=== PATIENT | female | born 1940 | race Two or more races ===

== ENCOUNTER 2018-09-25 17:27 | Inpatient (IN) | payer MEDICARE, OTHER ==
--- NOTE | 2018-09-25 17:54 | ED ---
Abdominal Pain HPI - General Chief Complaint: Abdominal Pain Stated Complaint: Gallbladder Time Seen by Provider: 09/25/18 17:30 Source: patient, EMS, RN notes reviewed Mode of arrival: EMS Limitations: no limitations - History of Present Illness Initial Comments: This is a 78-year-old [facility] with [facility] She was scheduled had a cholecystectomy done today was found have a markedly elevated white blood cell count. Is transferred here for higher level of care. She states her pain is not bad it did start last night and early this morning with associated nausea she currently denies any fevers chills nausea sweats or other symptoms at this time. View of old charting from the other facility shows a white blood cell count of 24.83 with 85 neutrophils and bilirubin elevated at 4.6 and troponin was elevated at 0.294. The patient is denying chest pain also the patient did have a CAT scan done and it was suggestive of acute cholecystitis with cholelithiasis. MD Complaint: abdominal pain - Related Data Home Medications Medication Instructions Recorded Confirmed Acetaminophen Tab [Tylenol Tab] 1,000 mg PO Q6H PRN 09/25/18 09/25/18 Fish Oil/Dha/Epa [Fish Oil 1,200 1 cap PO DAILY 09/25/18 09/25/18 mg Fish Oil] Vitamin B Complex 1 cap PO DAILY 09/25/18 09/25/18 Allergies Allergy/AdvReac Type Severity Reaction Status Date / Time No Known Allergies Allergy Unverified 09/25/18 17:39 Review of Systems ROS Statement: Those systems with pertinent positive or pertinent negative responses have been documented in the HPI. ROS Other: All systems not noted in ROS Statement are negative. Past Medical History Past Medical History: Cancer Additional Past Medical History / Comment(s): skin ca. History of Any Multi-Drug Resistant Organisms: None Reported Past Surgical History: No Surgical Hx Reported Past Psychological History: No Psychological Hx Reported Smoking Status: Current every day smoker Past Alcohol Use History: None Reported General Exam - General Exam Comments Initial Comments: This is a well-developed well-nourished awake alert oriented 3 female Limitations: no limitations General appearance: alert, in no apparent distress Head exam: Present: atraumatic, normocephalic, normal inspection Eye exam: Present: normal appearance, PERRL, EOMI. Absent: scleral icterus, conjunctival injection, periorbital swelling ENT exam: Present: normal exam, mucous membranes moist Neck exam: Present: normal inspection. Absent: tenderness, meningismus, lymphadenopathy Respiratory exam: Present: normal lung sounds bilaterally. Absent: respiratory distress, wheezes, rales, rhonchi, stridor Cardiovascular Exam: Present: regular rate, normal rhythm, normal heart sounds. Absent: systolic murmur, diastolic murmur, rubs, gallop, clicks GI/Abdominal exam: Present: soft, tenderness (Area mild tenderness palpation of the right upper quadrant), normal bowel sounds. Absent: distended, guarding, rebound, rigid Extremities exam: Present: normal inspection, full ROM, normal capillary refill. Absent: tenderness, pedal edema, joint swelling, calf tenderness Back exam: Present: normal inspection Neurological exam: Present: alert, oriented X3, CN II-XII intact Psychiatric exam: Present: normal affect, normal mood Skin exam: Present: warm, dry, intact, normal color. Absent: rash Course Vital Signs 09/25/18 09/25/18 17:29 19:09 Temperature 98.7 F Pulse Rate 97 87 Respiratory 16 18 Rate Blood Pressure 100/67 92/66 O2 Sat by Pulse 93 L 97 Oximetry Medical Decision Making - Medical Decision Making Did review the materials from the presenting facility did discuss findings with the paramedics of breath patient did discuss the case with the patient and with Dr. Magdaleno. Patient will be admitted with evaluation by cardiology as well as GI and surgery. - Lab Data Result diagrams: 09/25/18 18:16 Lab Results 09/25/18 09/25/18 Range/Units 18:16 18:16 Sodium 139 (137-145) mmol/L Potassium 3.3 L (3.5-5.1) mmol/L Chloride 104 (98-107) mmol/L Carbon Dioxide 26 (22-30) mmol/L Anion Gap 9 mmol/L BUN 11 (7-17) mg/dL Creatinine 0.66 (0.52-1.04) mg/dL Est GFR (CKD-EPI)AfAm >90 (>60 ml/min/1.73 sqM) Est GFR (CKD-EPI)NonAf 84 (>60 ml/min/1.73 sqM) Glucose 116 H (74-99) mg/dL Calcium 8.4 (8.4-10.2) mg/dL Total Bilirubin 3.8 H (0.2-1.3) mg/dL AST 459 H (14-36) U/L ALT 327 H (9-52) U/L Alkaline Phosphatase 332 H (38-126) U/L Creatine Kinase 43 (30-135) U/L Troponin I 0.211 H* (0.000-0.034) ng/mL Total Protein 5.8 L (6.3-8.2) g/dL Albumin 3.1 L (3.5-5.0) g/dL Lipase 14 L (23-300) U/L - EKG Data -: EKG Interpreted by Me EKG shows normal: sinus rhythm (Sinus rhythm a 94 [place] interval 174 QRS duration 92 QT since QTC 32/[address]-T wave changes) Disposition Clinical Impression: Non-STEMI (non-ST elevated myocardial infarction), Cholelithiasis and cholecystitis with obstruction, Hypokalemia, Leukocytosis Disposition: ADMITTED IP TO THIS HOSP Condition: Fair Referrals: Anastasia Tomlinson MD [Primary Care Provider] - 1-2 days
[2018-09-25 18:37] LABS: ALT 327 U/L (9-52); AST 459 U/L (14-36); African American GFR (CKD) >90 (>60 ml/min/1.73 sqM); Albumin 3.1 g/dL (3.5-5.0); Alkaline Phosphatase 332 U/L (38-126); Anion Gap 9 mmol/L; Blood Urea Nitrogen 11 mg/dL (7-17); Calcium 8.4 mg/dL (8.4-10.2); Carbon Dioxide 26 mmol/L (22-30); Chloride 104 mmol/L (98-107); Creatine Kinase 43 U/L (30-135); Glucose 116 mg/dL (74-99); Potassium 3.3 mmol/L (3.5-5.1); Sodium 139 mmol/L (137-145); Total Bilirubin 3.8 mg/dL (0.2-1.3); Total Protein 5.8 g/dL (6.3-8.2)
[2018-09-25] MEDS ORDERED: PIPERACILLIN-TAZOBACTAM 3.375 GM in SODIUM CHLORIDE 0.9% 100 ML IVPB STA (21:04)
[2018-09-25] MEDS ORDERED: HEPARIN SODIUM,PORCINE 5,000 UNIT/ML 1 ML VIAL IV ONE (21:07)
[2018-09-25] MEDS ORDERED: NITROGLYCERIN SL TABS 0.4 MG TAB SUBLINGUAL PRN (21:07)
[2018-09-25] MEDS ORDERED: POTASSIUM CHLORIDE 20 MEQ in WATER FOR INJECTION 1 100ML.BAG IVPB STA (21:14)
[2018-09-25] MEDS ORDERED: HEPARIN SOD,PORK IN 0.45% NACL 25,000 UNIT in 0.45% NACL 1 250ML.BAG IV SCH (21:15)
[2018-09-25] MEDS: SODIUM CHLORIDE 0.9% 1,000 ML IV SCH (23:21)
[2018-09-25] MEDS: MORPHINE SULFATE 4 MG/ML SYRINGE IV PRN (23:58)
[2018-09-26 00:34] LABS: Appearance,Urine Cloudy (Clear); Bilirubin,Urine 2+ (Negative); Blood,Urine Negative (Negative); Cellular Casts,Urine 8 /lpf (0); Color,Urine Dark Brown; Glucose,Urine (UA) Trace (Negative); Hyaline Casts,Urine 8 /lpf (0-2); Ketones,Urine 3+ (Negative); Leukocyte Esterase,Urine Small (Negative); Mucus,Urine Few /hpf; Nitrite,Urine Negative (Negative); PH, Urine 6.5 (5.0-8.0); Protein,Urine 2+ (Negative); RBC,Urine 15 /hpf (0-5); Specific Gravity,Urine 1.032 (1.001-1.035); Squamous Epithelial Cell,Urine <1 /hpf (0-4)
[2018-09-26 00:52] LABS: HCT 32.9 % (34.0-46.0); HGB 10.9 gm/dL (11.4-16.0); MCH 30.2 pg (25.0-35.0); MCHC 33.3 g/dL (31.0-37.0); MCV 90.7 fL (80.0-100.0); Mean Platelet Volume 8.6; Platelet Count 199 k/uL (150-450); RBC 3.63 m/uL (3.80-5.40); RDW 12.1 % (11.5-15.5); WBC 17.2 k/uL (3.8-10.6)
[2018-09-26 03:46] LABS: Basophils % (A) 0 %; Eosinophils # (A) 0.2 k/uL (0-0.7); Eosinophils % (A) 1 %; HCT 33.1 % (34.0-46.0); HGB 10.8 gm/dL (11.4-16.0); Lymphocytes # (A) 0.6 k/uL (1.0-4.8); Lymphocytes % (A) 4 %; MCH 29.7 pg (25.0-35.0); MCHC 32.6 g/dL (31.0-37.0); Mean Platelet Volume 8.6; Monocytes # (A) 0.8 k/uL (0-1.0); Monocytes % (A) 5 %; Neutrophils # (A) 12.9 k/uL (1.3-7.7); Neutrophils % (A) 88 %; Platelet Count 185 k/uL (150-450); RBC 3.64 m/uL (3.80-5.40); RDW 12.2 % (11.5-15.5); WBC 14.7 k/uL (3.8-10.6)
[2018-09-26 04:20] LABS: African American GFR (CKD) >90 (>60 ml/min/1.73 sqM); Anion Gap 9 mmol/L; Blood Urea Nitrogen 15 mg/dL (7-17); Carbon Dioxide 25 mmol/L (22-30); Chloride 103 mmol/L (98-107); Cholesterol 159 mg/dL (<200); Glucose 78 mg/dL (74-99); HDL Cholesterol 30 mg/dL (40-60); LDL Cholesterol,Calculated 114 mg/dL (0-99); Potassium 3.5 mmol/L (3.5-5.1); Sodium 137 mmol/L (137-145); Triglycerides 76 mg/dL (<150)
[2018-09-26] MEDS: SODIUM CHLORIDE 0.9% 1,000 ML IV SCH ×3 (06:15→21:31)
--- NOTE | 2018-09-26 08:08 | P.CRDCN ---
History of Present Illness Consult date: 09/26/18 Requesting physician: Mg Magdaleno Reason for Consult (text): Abnormal troponin Chief complaint: Acute cholecystitis History of present illness: This is a pleasant 78-year-old female with no prior documented history of hypertension, no diabetes, no hyperlipidemia, she is a nonsmoker, does not drink alcohol. She was a transfer from [facility]. Patient apparently was scheduled to undergo cholecystectomy for acute cholecystitis, she was found to have a significantly elevated white blood cell count and arranged for transfer here to the higher level of care. A troponin was also drawn at the prior institution which came back to be mildly abnormal. Patient denies having any chest discomfort at present or in the past couple of weeks. Her breathing overall is stable. White blood cell count at [facility] 24.8, hemoglobin 12.4, platelet count 193, sodium 137, potassium 3.1, BUN 9 and creatinine 0.8. ALT 354 alk phos 392 total bili 4.6 albumin 3.4 lactic acid 1.2 troponin 0.[address] [facility] [address] [facility] 108/58 with a heart rate of 117, respirations 20, afebrile CAT scan of the abdomen and pelvis revealed acute cholecystitis with cholelithiasis, chest x-ray did not reveal any acute abnormality. They did not send an EKG from [facility] [address] [facility] EKG performed on arrival here shows a normal sinus rhythm with no acute changes. Blood pressure 92/50 with a heart rate of 90, 94% on room air. White blood cell count on arrival 17.2, 14.7 this morning. Hemoglobin 10.8, platelet count 185. Sodium 137, potassium 3.5, BUN 15 and creatinine 0.6. Troponins here at [facility] 0.14, 0.10. Cholesterol 159, LDL 114 and HDL 30. At the time of my examination this morning, the patient is quite comfortable, she denies any chest discomfort, has some mild abdominal discomfort, and her breathing is stable. Past Medical History Past Medical History: Cancer Additional Past Medical History / Comment(s): skin ca. History of Any Multi-Drug Resistant Organisms: None Reported Past Surgical History: Tubal Ligation Past Anesthesia/Blood Transfusion Reactions: No Reported Reaction Past Psychological History: No Psychological Hx Reported Smoking Status: Never smoker Past Alcohol Use History: None Reported Medications and Allergies Home Medications Medication Instructions Recorded Confirmed Type Acetaminophen Tab [Tylenol Tab] 1,000 mg PO Q6H PRN 09/25/18 09/25/18 History Fish Oil/Dha/Epa [Fish Oil 1,200 1 cap PO DAILY 09/25/18 09/25/18 History mg Fish Oil] Vitamin B Complex 1 cap PO DAILY 09/25/18 09/25/18 History Allergies Allergy/AdvReac Type Severity Reaction Status Date / Time No Known Allergies Allergy Unverified 09/25/18 17:39 Physical Exam Vitals: Vital Signs Temp Pulse Pulse Resp BP BP Pulse Ox 09/26/18 04:00 98 F 93 18 92/54 94 L 09/26/18 03:55 93 18 09/26/18 00:07 95 09/26/18 00:00 89 18 09/25/18 23:21 97.7 F 82 18 106/67 93 L 09/25/18 22:35 98.5 F 89 18 111/79 95 09/25/18 21:53 97.7 F 82 18 90/59 93 L 09/25/18 19:09 87 18 92/66 97 09/25/18 17:29 98.7 F 97 16 100/67 93 L Intake and Output 09/25/18 09/26/18 09/26/18 22:59 06:59 14:59 Intake Total 57.116 Output Total 200 Balance -142.884 Intake: Intake, IV Titration 57.116 Amount Heparin Sod,Pork in 0.45% 57.116 NaCl 25,000 unit In 0.45 % NaCl 1 250ml.bag @ 12 UNITS/KG/HR 8.546 mls/hr IV .Q24H [facility] Rx#: [id number] Output: Urine 200 Other: Voiding Method Toilet Weight 71.214 kg 71.2 kg PHYSICAL EXAMINATION: GENERAL: 78-year-old female in no acute distress at the time of my examination HEENT: Head is atraumatic, normocephalic. Pupils equal, round. Sclera anicteric. Conjunctiva are clear. Mucous membranes of the mouth are moist. Neck is supple. There is no elevated jugular venous pressure. No carotid bruit is heard. HEART EXAMINATION: Heart S1 and S2 with soft systolic murmur is heard CHEST EXAMINATION: Lungs reveal some scattered coarse rhonchi that clear with cough. ABDOMEN: Soft, mild right upper quadrant tenderness on palpation . Bowel sounds are heard. No organomegaly noted. EXTREMITIES: 2+ peripheral pulses with no evidence of peripheral edema and no calf tenderness noted. NEUROLOGIC patient is awake, alert and oriented 3 . . Results 09/26/18 03:36 09/26/18 03:36 Cardiac Enzymes 09/25/18 09/25/18 09/26/18 Range/Units 18:16 18:16 00:27 AST 459 H (14-36) U/L Troponin I 0.211 H* 0.143 H* (0.000-0.034) ng/mL 09/26/18 Range/Units 06:27 AST (14-36) U/L Troponin I 0.108 H* (0.000-0.034) ng/mL Coagulation 09/26/18 Range/Units 03:36 APTT 41.7 H (22.0-30.0) sec Lipids 09/26/18 Range/Units 03:36 Triglycerides 76 (<150) mg/dL Cholesterol 159 (<200) mg/dL HDL Cholesterol 30 L (40-60) mg/dL CBC 09/26/18 09/26/18 Range/Units 00:37 03:36 WBC 17.2 H 14.7 H (3.8-10.6) k/uL RBC 3.63 L 3.64 L (3.80-5.40) m/uL Hgb 10.9 L 10.8 L (11.4-16.0) gm/dL Hct 32.9 L 33.1 L (34.0-46.0) % Plt Count 199 185 (150-450) k/uL Comprehensive Metabolic Panel 09/25/18 09/26/18 Range/Units 18:16 03:36 Sodium 139 137 (137-145) mmol/L Potassium 3.3 L 3.5 (3.5-5.1) mmol/L Chloride 104 103 (98-107) mmol/L Carbon Dioxide 26 25 (22-30) mmol/L BUN 11 15 (7-17) mg/dL Creatinine 0.66 0.66 (0.52-1.04) mg/dL Glucose 116 H 78 (74-99) mg/dL Calcium 8.4 8.0 L (8.4-10.2) mg/dL AST 459 H (14-36) U/L ALT 327 H (9-52) U/L Alkaline Phosphatase 332 H (38-126) U/L Total Protein 5.8 L (6.3-8.2) g/dL Albumin 3.1 L (3.5-5.0) g/dL Current Medications Generic Name Dose Route Start Last Admin Trade Name Freq PRN Reason Stop Dose Admin Aspirin 325 mg 09/26/18 09:00 Aspirin PO DAILY [facility] Heparin Sodium/Sodium Chloride 250 mls @ 8.546 mls/hr 09/25/18 21:15 09/26/18 04:16 25,000 unit/ Sodium Chloride IV 14 units/kg/hr .Q24H [facility] 9.97 mls/hr Titration Protocol 12 UNITS/KG/HR Sodium Chloride 1,000 mls @ 125 mls/hr 09/25/18 21:30 09/26/18 06:15 Saline 0.9% IV 125 mls/hr .Q8H [facility] Administration Morphine Sulfate 4 mg 09/25/18 21:07 09/25/18 23:58 Morphine Sulfate (Inj) IV 4 mg Q5M PRN Administration Chest Pain Nitroglycerin 0.4 mg 09/25/18 21:07 Nitrostat SUBLINGUAL Q5M PRN Chest Pain Pantoprazole Sodium 40 mg 09/26/18 09:00 Protonix IVP BID AGUILAR Intake and Output 09/25/18 09/26/18 09/26/18 22:59 06:59 14:59 Intake Total 57.116 Output Total 200 Balance -142.884 Intake: Intake, IV Titration 57.116 Amount Heparin Sod,Pork in 0.45% 57.116 NaCl 25,000 unit In 0.45 % NaCl 1 250ml.bag @ 12 UNITS/KG/HR 8.546 mls/hr IV .Q24H [facility] Rx#: [id number] Output: Urine 200 Other: Voiding Method Toilet Weight 71.214 kg 71.2 kg 09/26/18 03:36 09/26/18 03:36 EKG Interpretations (text) EKG shows a normal sinus rhythm with no acute changes. Assessment and Plan Plan: Assessment and plan #1 acute cholecystitis with elevated white blood cell count #2 abnormal troponin, not consistent with acute coronary syndrome, likely secondary to the acute cholecystitis #3 cardiac risk factors negative for hypertension, no diabetes, no hyperlipidemia, patient is a nonsmoker Plan We will obtain an echocardiogram with Doppler study. Decrease the patient's aspirin to 81 mg daily. If the blood pressure tolerates we will add a small dose of beta jenny. Further recommendations to follow. DNP note has been reviewed, I agree with a documented findings and plan of care. Patient was seen and examined.
[2018-09-26] MEDS ORDERED: ASPIRIN 325 MG TAB PO SCH (09:00)
[2018-09-26] MEDS: PANTOPRAZOLE 40 MG/10 ML VIAL IVP SCH ×2 (09:16→20:09)
[2018-09-26] MEDS: ASPIRIN 81 MG PO SCH (09:16)
[2018-09-26] MEDS: METOPROLOL TARTRATE 12.5 MG TAB PO SCH (09:16)
[2018-09-26] MEDS ORDERED: KETOROLAC 30 MG/ML 1 ML VIAL IVP PRN (11:15)
--- NOTE | 2018-09-26 12:47 | P.CONS ---
History of Present Illness - Reason for Consult Consult date: 09/26/18 Cholelithiasis elevated liver enzymes Requesting physician: Mg Magdaleno - Chief Complaint Abdominal pain - History of Present Illness 78-year-old female past medical history hypertension with a history of cholelithiasis worked up in the outpatient setting [place] scheduled for outpatient cholecystectomy admitted from [facility] with worsening abdominal pain elevated liver enzymes dark colored urine. Today's CMP pending. Admission Total bilirubin 3.8. AST 459. ALT 327. AP 332. Lipase 14. Troponin 0.1-0.2. Abdominal pain still still present most in the midepigastric region. Afebrile. CT abdomen and pelvis 09/25/2018 [place] reported gallstones with inflammatory changes in the fundus possible wall thickening correlate for cholecystitis. LFTS at [place] TB 4.6. ALT 354. AST 518. AP 392. Review of Systems Constitutional: Denies fever, chills, sweats, weight gain, or loss. HEENT: Negative for migraines, blurred vision or loss, earaches, drainage, tinnitus, oral mucosal lesions, dysphagia, or odynophagia. CARDIAC: Negative for chest pain, arrhythmias, or palpitation. RESPIRATORY: Negative for shortness of breath, hemoptysis, cough, or sputum production. GI: See HPI for pertinent findings. : Negative for hematuria, urgency, frequency, polyuria, or dysuria. GYNc: Negative vaginal discharge. MUSCULOSKELETAL: Negative for muscle aches, swelling, arthritis, and arthralgias. NEUROLOGIC: Negative for stroke or TIA. ENDOCRINE: Negative for thyroid problems. SKIN: Negative for rash or itching. PSYCHIATRIC: Negative history for depression and anxietyale Past Medical History Past Medical History: Cancer Additional Past Medical History / Comment(s): skin ca. History of Any Multi-Drug Resistant Organisms: None Reported Past Surgical History: Tubal Ligation Past Anesthesia/Blood Transfusion Reactions: No Reported Reaction Past Psychological History: No Psychological Hx Reported Smoking Status: Never smoker Past Alcohol Use History: None Reported Medications and Allergies Home Medications Medication Instructions Recorded Confirmed Type Acetaminophen Tab [Tylenol Tab] 1,000 mg PO Q6H PRN 09/25/18 09/25/18 History Fish Oil/Dha/Epa [Fish Oil 1,200 1 cap PO DAILY 08/05/19 08/05/19 History mg Fish Oil] Vitamin B Complex 1 cap PO DAILY 09/25/18 09/25/18 History Allergies Allergy/AdvReac Type Severity Reaction Status Date / Time No Known Allergies Allergy Unverified 09/25/18 17:39 Physical Exam Vitals: Vital Signs Temp Pulse Pulse Resp BP BP Pulse Ox 09/26/18 08:00 98.2 F 81 18 96/59 92 L 09/26/18 04:00 98 F 93 18 92/54 94 L 09/26/18 03:55 93 18 09/26/18 00:07 95 09/26/18 00:00 89 18 09/25/18 23:21 97.7 F 82 18 106/67 93 L 09/25/18 22:35 98.5 F 89 18 111/79 95 09/25/18 21:53 97.7 F 82 18 90/59 93 L 09/25/18 19:09 87 18 92/66 97 09/25/18 17:29 98.7 F 97 16 100/67 93 L Intake and Output 09/25/18 09/26/18 09/26/18 22:59 06:59 14:59 Intake Total 57.116 180 Output Total 200 Balance -142.884 180 Intake: Intake, IV Titration 57.116 Amount Heparin Sod,Pork in 0.45% 57.116 NaCl 25,000 unit In 0.45 % NaCl 1 250ml.bag @ 12 UNITS/KG/HR 8.546 mls/hr IV .Q24H [facility] Rx#: [id number] Oral 180 Output: Urine 200 Other: Voiding Method Toilet Toilet # Voids 1 Weight 71.214 kg 71.2 kg General appearance: The patient is alert, oriented, in no acute distress. Jaundice. HET: Head is normocephalic and atraumatic. Pupils are equal and reactive. Sclerae icterus. Oropharynx is clear without lesions. Neck: Supple without lymphadenopathy. Trachea midline. Heart: S1 S2. Regular rate and rhythm. Lungs: No crackles or wheezes are heard. Abdomen: Soft, moderate tenderness midepigastrium right upper quadrant, nondistended with bowel sounds. No peritoneal signs. No palpable organomegaly or masses. Extremities: Normal skin color and turgor. No cyanosis, rash, ulceration, clubbing, or edema. Radial and pedal pulses are 2/4 bilaterally. Neurological: No focal deficits. Strength and sensation are grossly intact. Results CBC & Chem 7: 09/26/18 03:36 09/26/18 10:20 Labs: Abnormal Lab Results - Last 24 Hours (Table) 09/25/18 09/25/18 09/26/18 Range/Units 18:16 18:16 00:00 WBC (3.8-10.6) k/uL RBC (3.80-5.40) m/uL Hgb (11.4-16.0) gm/dL Hct (34.0-46.0) % Neutrophils # (1.3-7.7) k/uL Lymphocytes # (1.0-4.8) k/uL APTT (22.0-30.0) sec Potassium 3.3 L (3.5-5.1) mmol/L Glucose 116 H (74-99) mg/dL Calcium (8.4-10.2) mg/dL Total Bilirubin 3.8 H (0.2-1.3) mg/dL AST 459 H (14-36) U/L ALT 327 H (9-52) U/L Alkaline Phosphatase 332 H (38-126) U/L Troponin I 0.211 H* (0.000-0.034) ng/mL Total Protein 5.8 L (6.3-8.2) g/dL Albumin 3.1 L (3.5-5.0) g/dL LDL Cholesterol, Calc (0-99) mg/dL HDL Cholesterol (40-60) mg/dL Lipase 14 L (23-300) U/L Urine Appearance Cloudy H (Clear) Urine Protein 2+ H (Negative) Urine Glucose (UA) Trace H (Negative) Urine Ketones 3+ H (Negative) Urine Bilirubin 2+ H (Negative) Ur Leukocyte Esterase Small H (Negative) Urine RBC 15 H (0-5) /hpf Urine WBC 31 H (0-5) /hpf Hyaline Casts 8 H (0-2) /lpf Urine Mucus Few H (None) /hpf 09/26/18 09/26/18 09/26/18 Range/Units 00:27 00:37 03:36 WBC 17.2 H (3.8-10.6) k/uL RBC 3.63 L (3.80-5.40) m/uL Hgb 10.9 L (11.4-16.0) gm/dL Hct 32.9 L (34.0-46.0) % Neutrophils # (1.3-7.7) k/uL Lymphocytes # (1.0-4.8) k/uL APTT (22.0-30.0) sec Potassium (3.5-5.1) mmol/L Glucose (74-99) mg/dL Calcium 8.0 L (8.4-10.2) mg/dL Total Bilirubin (0.2-1.3) mg/dL AST (14-36) U/L ALT (9-52) U/L Alkaline Phosphatase (38-126) U/L Troponin I 0.143 H* (0.000-0.034) ng/mL Total Protein (6.3-8.2) g/dL Albumin (3.5-5.0) g/dL LDL Cholesterol, Calc 114 H (0-99) mg/dL HDL Cholesterol 30 L (40-60) mg/dL Lipase (23-300) U/L Urine Appearance (Clear) Urine Protein (Negative) Urine Glucose (UA) (Negative) Urine Ketones (Negative) Urine Bilirubin (Negative) Ur Leukocyte Esterase (Negative) Urine RBC (0-5) /hpf Urine WBC (0-5) /hpf Hyaline Casts (0-2) /lpf Urine Mucus (None) /hpf 09/26/18 09/26/18 09/26/18 Range/Units 03:36 03:36 06:27 WBC 14.7 H (3.8-10.6) k/uL RBC 3.64 L (3.80-5.40) m/uL Hgb 10.8 L (11.4-16.0) gm/dL Hct 33.1 L (34.0-46.0) % Neutrophils # 12.9 H (1.3-7.7) k/uL Lymphocytes # 0.6 L (1.0-4.8) k/uL APTT 41.7 H (22.0-30.0) sec Potassium (3.5-5.1) mmol/L Glucose (74-99) mg/dL Calcium (8.4-10.2) mg/dL Total Bilirubin (0.2-1.3) mg/dL AST (14-36) U/L ALT (9-52) U/L Alkaline Phosphatase (38-126) U/L Troponin I 0.108 H* (0.000-0.034) ng/mL Total Protein (6.3-8.2) g/dL Albumin (3.5-5.0) g/dL LDL Cholesterol, Calc (0-99) mg/dL HDL Cholesterol (40-60) mg/dL Lipase (23-300) U/L Urine Appearance (Clear) Urine Protein (Negative) Urine Glucose (UA) (Negative) Urine Ketones (Negative) Urine Bilirubin (Negative) Ur Leukocyte Esterase (Negative) Urine RBC (0-5) /hpf Urine WBC (0-5) /hpf Hyaline Casts (0-2) /lpf Urine Mucus (None) /hpf 09/26/18 Range/Units 10:20 WBC (3.8-10.6) k/uL RBC (3.80-5.40) m/uL Hgb (11.4-16.0) gm/dL Hct (34.0-46.0) % Neutrophils # (1.3-7.7) k/uL Lymphocytes # (1.0-4.8) k/uL APTT 41.3 H (22.0-30.0) sec Potassium (3.5-5.1) mmol/L Glucose (74-99) mg/dL Calcium (8.4-10.2) mg/dL Total Bilirubin (0.2-1.3) mg/dL AST (14-36) U/L ALT (9-52) U/L Alkaline Phosphatase (38-126) U/L Troponin I (0.000-0.034) ng/mL Total Protein (6.3-8.2) g/dL Albumin (3.5-5.0) g/dL LDL Cholesterol, Calc (0-99) mg/dL HDL Cholesterol (40-60) mg/dL Lipase (23-300) U/L Urine Appearance (Clear) Urine Protein (Negative) Urine Glucose (UA) (Negative) Urine Ketones (Negative) Urine Bilirubin (Negative) Ur Leukocyte Esterase (Negative) Urine RBC (0-5) /hpf Urine WBC (0-5) /hpf Hyaline Casts (0-2) /lpf Urine Mucus (None) /hpf Microbiology - Last 24 Hours (Table) 09/26/18 00:00 Urine Culture - Preliminary Urine,Voided CT scan - abdomen: report reviewed (Priti report Dr. Greenwood) Assessment and Plan (1) Acute abdominal pain Narrative/Plan: 78-year-old female admitted with acute midepigastric abdominal pain with a history of known cholelithiasis scheduled for outpatient cholecystectomy with worsening liver function tests new-onset of obstructive jaundice suspected choledocholithiasis. Current Visit: Yes Status: Acute Code(s): R10.9 - UNSPECIFIED ABDOMINAL PAIN SNOMED Code(s): 246448165 (2) Elevated liver enzymes Current Visit: Yes Status: Acute Code(s): R74.8 - ABNORMAL LEVELS OF OTHER SERUM ENZYMES SNOMED Code(s): 039257987 (3) Cholelithiasis Current Visit: Yes Status: Acute Code(s): K80.20 - CALCULUS OF GALLBLADDER W/O CHOLECYSTITIS W/O OBSTRUCTION SNOMED Code(s): 051695039 Plan: 1. Nothing by mouth. ERCP tomorrow if LFTs do not improve; case discussed w/D donovan Munoz plans for cholecystectomy tomorrow if LFTs improve. Zosyn 3.375 g every 8 hours. PT/INR. Daily CMP CBC. General surgical consult. The solar designer/installer has discussed the risks, benefits and alternative therapies for the above-mentioned procedure and for both sedation/analgesia as well as necessary blood product administration, if indicated, as they pertain to this patient. The patient has indicated understanding and acceptance of the risks and procedures discussed. Thank you for this kind referral and the opportunity to participate in the care of your patient. This consultation was discussed with Dr. Greenwood. The impression and plan of care have been directed as dictated.
[2018-09-26 12:59] LABS: ALT 280 U/L (9-52); AST 268 U/L (14-36); African American GFR (CKD) >90 (>60 ml/min/1.73 sqM); Albumin 2.8 g/dL (3.5-5.0); Alkaline Phosphatase 283 U/L (38-126); Anion Gap 11 mmol/L; Blood Urea Nitrogen 15 mg/dL (7-17); Calcium 8.3 mg/dL (8.4-10.2); Carbon Dioxide 22 mmol/L (22-30); Chloride 105 mmol/L (98-107); Glucose 78 mg/dL (74-99); Potassium 3.8 mmol/L (3.5-5.1); Sodium 138 mmol/L (137-145); Total Protein 5.4 g/dL (6.3-8.2)
--- NOTE | 2018-09-26 13:01 | P.HPIM ---
History of Present Illness 78-year-old female was transferred here because of cholelithiasis and cholecystitis. Patient is presently on Zosyn. Patient does have elevated liver enzymes although on the ultrasound didn't mention anything about dilated bile duct are critical to assess. Patient was evaluated by gastroenterology and general surgery will evaluate the patient as well patient will undergo ERCP later today or tomorrow morning. Patient doesn't have any fever but does have leukocytosis admitted troponin secondary to sepsis no evidence of chest pain or EKG changes. Cardiac evaluated the patient is lipase within normal limits. Patient had multiple episodes of nausea vomiting Review of Systems REVIEW OF SYSTEMS: CONSTITUTIONAL: No fever, no malaise, no fatigue. HEENT: No recent visual problems or hearing problems. Denied any sore throat. CARDIOVASCULAR: No chest pain, orthopnea, PND, no palpitations, no syncope. PULMONARY: No shortness of breath, no cough, no hemoptysis. GASTROINTESTINAL: As mentioned in HPI NEUROLOGICAL: No headaches, no weakness, no numbness. HEMATOLOGICAL: Denies any bleeding or petechiae. GENITOURINARY: Denies any burning micturition, frequency, or urgency. MUSCULOSKELETAL/RHEUMATOLOGICAL: Denies any joint pain, swelling, or any muscle pain. ENDOCRINE: Denies any polyuria or polydipsia. The rest of the 14-point review of systems is negative. Past Medical History Past Medical History: Cancer Additional Past Medical History / Comment(s): skin ca. History of Any Multi-Drug Resistant Organisms: None Reported Past Surgical History: Tubal Ligation Past Anesthesia/Blood Transfusion Reactions: No Reported Reaction Past Psychological History: No Psychological Hx Reported Smoking Status: Never smoker Past Alcohol Use History: None Reported Medications and Allergies Home Medications Medication Instructions Recorded Confirmed Type Acetaminophen Tab [Tylenol Tab] 1,000 mg PO Q6H PRN 09/25/18 09/25/18 History Fish Oil/Dha/Epa [Fish Oil 1,200 1 cap PO DAILY 09/25/18 09/25/18 History mg Fish Oil] Vitamin B Complex 1 cap PO DAILY 09/25/18 09/25/18 History Allergies Allergy/AdvReac Type Severity Reaction Status Date / Time No Known Allergies Allergy Unverified 09/25/18 17:39 Physical Exam Vitals: Vital Signs Temp Pulse Pulse Resp BP BP Pulse Ox 09/26/18 08:00 98.2 F 81 18 96/59 92 L 09/26/18 04:00 98 F 93 18 92/54 94 L 09/26/18 03:55 93 18 09/26/18 00:07 95 09/26/18 00:00 89 18 09/25/18 23:21 97.7 F 82 18 106/67 93 L 09/25/18 22:35 98.5 F 89 18 111/79 95 09/25/18 21:53 97.7 F 82 18 90/59 93 L 09/25/18 19:09 87 18 92/66 97 09/25/18 17:29 98.7 F 97 16 100/67 93 L Intake and Output 09/25/18 09/26/18 09/26/18 22:59 06:59 14:59 Intake Total 57.116 180 Output Total 200 Balance -142.884 180 Intake: Intake, IV Titration 57.116 Amount Heparin Sod,Pork in 0.45% 57.116 NaCl 25,000 unit In 0.45 % NaCl 1 250ml.bag @ 12 UNITS/KG/HR 8.546 mls/hr IV .Q24H [facility] Rx#: [id number] Oral 180 Output: Urine 200 Other: Voiding Method Toilet Toilet # Voids 1 Weight 71.214 kg 71.2 kg PHYSICAL EXAMINATION: GENERAL: The patient is alert and oriented x3, not in any acute distress. Well developed, well nourished. HEENT: Pupils are round and equally reacting to light. EOMI. No scleral icterus. No conjunctival pallor. Normocephalic, atraumatic. No pharyngeal erythema. No thyromegaly. CARDIOVASCULAR: S1 and S2 present. No murmurs, rubs, or gallops. PULMONARY: Chest is clear to auscultation, no wheezing or crackles. ABDOMEN: Soft, mild at the upper quadrant tenderness MUSCULOSKELETAL: No joint swelling or deformity. EXTREMITIES: No cyanosis, clubbing, or pedal edema. NEUROLOGICAL: Gross neurological examination did not reveal any focal deficits. SKIN: No rashes. Results CBC & Chem 7: 09/26/18 03:36 09/26/18 03:36 Labs: Abnormal Lab Results - Last 24 Hours (Table) 09/25/18 09/25/18 09/26/18 Range/Units 18:16 18:16 00:00 WBC (3.8-10.6) k/uL RBC (3.80-5.40) m/uL Hgb (11.4-16.0) gm/dL Hct (34.0-46.0) % Neutrophils # (1.3-7.7) k/uL Lymphocytes # (1.0-4.8) k/uL APTT (22.0-30.0) sec Potassium 3.3 L (3.5-5.1) mmol/L Glucose 116 H (74-99) mg/dL Calcium (8.4-10.2) mg/dL Total Bilirubin 3.8 H (0.2-1.3) mg/dL AST 459 H (14-36) U/L ALT 327 H (9-52) U/L Alkaline Phosphatase 332 H (38-126) U/L Troponin I 0.211 H* (0.000-0.034) ng/mL Total Protein 5.8 L (6.3-8.2) g/dL Albumin 3.1 L (3.5-5.0) g/dL LDL Cholesterol, Calc (0-99) mg/dL HDL Cholesterol (40-60) mg/dL Lipase 14 L (23-300) U/L Urine Appearance Cloudy H (Clear) Urine Protein 2+ H (Negative) Urine Glucose (UA) Trace H (Negative) Urine Ketones 3+ H (Negative) Urine Bilirubin 2+ H (Negative) Ur Leukocyte Esterase Small H (Negative) Urine RBC 15 H (0-5) /hpf Urine WBC 31 H (0-5) /hpf Hyaline Casts 8 H (0-2) /lpf Urine Mucus Few H (None) /hpf 09/26/18 09/26/18 09/26/18 Range/Units 00:27 00:37 03:36 WBC 17.2 H (3.8-10.6) k/uL RBC 3.63 L (3.80-5.40) m/uL Hgb 10.9 L (11.4-16.0) gm/dL Hct 32.9 L (34.0-46.0) % Neutrophils # (1.3-7.7) k/uL Lymphocytes # (1.0-4.8) k/uL APTT (22.0-30.0) sec Potassium (3.5-5.1) mmol/L Glucose (74-99) mg/dL Calcium 8.0 L (8.4-10.2) mg/dL Total Bilirubin (0.2-1.3) mg/dL AST (14-36) U/L ALT (9-52) U/L Alkaline Phosphatase (38-126) U/L Troponin I 0.143 H* (0.000-0.034) ng/mL Total Protein (6.3-8.2) g/dL Albumin (3.5-5.0) g/dL LDL Cholesterol, Calc 114 H (0-99) mg/dL HDL Cholesterol 30 L (40-60) mg/dL Lipase (23-300) U/L Urine Appearance (Clear) Urine Protein (Negative) Urine Glucose (UA) (Negative) Urine Ketones (Negative) Urine Bilirubin (Negative) Ur Leukocyte Esterase (Negative) Urine RBC (0-5) /hpf Urine WBC (0-5) /hpf Hyaline Casts (0-2) /lpf Urine Mucus (None) /hpf 09/26/18 09/26/18 09/26/18 Range/Units 03:36 03:36 06:27 WBC 14.7 H (3.8-10.6) k/uL RBC 3.64 L (3.80-5.40) m/uL Hgb 10.8 L (11.4-16.0) gm/dL Hct 33.1 L (34.0-46.0) % Neutrophils # 12.9 H (1.3-7.7) k/uL Lymphocytes # 0.6 L (1.0-4.8) k/uL APTT 41.7 H (22.0-30.0) sec Potassium (3.5-5.1) mmol/L Glucose (74-99) mg/dL Calcium (8.4-10.2) mg/dL Total Bilirubin (0.2-1.3) mg/dL AST (14-36) U/L ALT (9-52) U/L Alkaline Phosphatase (38-126) U/L Troponin I 0.108 H* (0.000-0.034) ng/mL Total Protein (6.3-8.2) g/dL Albumin (3.5-5.0) g/dL LDL Cholesterol, Calc (0-99) mg/dL HDL Cholesterol (40-60) mg/dL Lipase (23-300) U/L Urine Appearance (Clear) Urine Protein (Negative) Urine Glucose (UA) (Negative) Urine Ketones (Negative) Urine Bilirubin (Negative) Ur Leukocyte Esterase (Negative) Urine RBC (0-5) /hpf Urine WBC (0-5) /hpf Hyaline Casts (0-2) /lpf Urine Mucus (None) /hpf 09/26/18 Range/Units 10:20 WBC (3.8-10.6) k/uL RBC (3.80-5.40) m/uL Hgb (11.4-16.0) gm/dL Hct (34.0-46.0) % Neutrophils # (1.3-7.7) k/uL Lymphocytes # (1.0-4.8) k/uL APTT 41.3 H (22.0-30.0) sec Potassium (3.5-5.1) mmol/L Glucose (74-99) mg/dL Calcium (8.4-10.2) mg/dL Total Bilirubin (0.2-1.3) mg/dL AST (14-36) U/L ALT (9-52) U/L Alkaline Phosphatase (38-126) U/L Troponin I (0.000-0.034) ng/mL Total Protein (6.3-8.2) g/dL Albumin (3.5-5.0) g/dL LDL Cholesterol, Calc (0-99) mg/dL HDL Cholesterol (40-60) mg/dL Lipase (23-300) U/L Urine Appearance (Clear) Urine Protein (Negative) Urine Glucose (UA) (Negative) Urine Ketones (Negative) Urine Bilirubin (Negative) Ur Leukocyte Esterase (Negative) Urine RBC (0-5) /hpf Urine WBC (0-5) /hpf Hyaline Casts (0-2) /lpf Urine Mucus (None) /hpf Microbiology - Last 24 Hours (Table) 09/26/18 00:00 Urine Culture - Preliminary Urine,Voided Thrombosis Risk Factor Assmnt - Choose All That Apply Any of the Below Risk Factors Present?: Yes Each Factor Represents 1 point: Minor surgery planned, Obesity (BMI >25), Varicose veins Other Risk Factors: Yes Each Risk Factor Represents 3 Points: Age 75 years or older Other congenital or acquired thrombophilia - If yes, enter type in comment: No Thrombosis Risk Factor Assessment Total Risk Factor Score: 6 Thrombosis Risk Factor Assessment Level: High Risk Assessment and Plan Plan: -Cholecystitis, possible choledocholithiasis and elevated bilirubin: Patient will undergo ERCP later today or tomorrow patient will be continued on Zosyn IV fluids. elevated troponin secondary to sepsis no evidence of acute the coronary syndromes at this time. -Elevated liver enzymes secondary to choledocholithiasis -DVT prophylaxis with subcutaneous heparin, GI prophylaxis with Protonix
[2018-09-26 13:07] LABS: Prothrombin Time 10.8 sec (9.0-12.0)
--- NOTE | 2018-09-26 15:59 | ECHOF ---
Referral Reason:assess lvf MEASUREMENTS -------- HEIGHT: 154.9 cm WEIGHT: 70.8 kg BP: IVSd: 1.4 cm (0.6 - 1.1) LVIDd: 3.2 cm (3.9 - 5.3) LVPWd: 1.1 cm (0.6 - 1.1) IVSs: 2.0 cm LVIDs: 2.1 cm LVPWs: 2.1 cm RVIDd: 3.0 cm (< 3.3) LAESV Index (A-L): 27.45 ml/m Ao Diam: 2.8 cm (2.0 - 3.7) LA Diam: 3.3 cm (2.7 - 3.8) AV Cusp: 1.4 cm (1.5 - 2.6) EPSS: 0.9 cm MV E Obed: 0.59 m/s MV DecT: 143 ms MV A Obed: 0.93 m/s MV E/A Ratio: 0.63 RAP: 20.00 mmHg RVSP: 55.84 mmHg MV EF SLOPE: 39.83 mm/s (70 - 150) MV EXCURSION: 12.49 mm (> 18.000) FINDINGS -------- Sinus rhythm. This was a technically good study. The left ventricular size is normal. There is mild concentric left ventricular hypertrophy. Overa ll left ventricular systolic function is normal with, an EF between 55 - 60 %. The right ventricle is normal in size. Normal LA size by volume 22+/-6 ml/m2. The right atrial size is normal. Interatrial and interventricular septum intact. Aortic valve is trileaflet and is mildly thickened. The mitral valve is normal. There is trace mitral regurgitation. Severe tricuspid regurgitation present. There is moderate pulmonary hypertension. The right ventr icular systolic pressure, as measured by Doppler, is 55.84mmHg. There is no pulmonic regurgitation present. The aortic root size is normal. The inferior vena cava is dilated with no significant inspiratory collapse which is consistent estima steven right atrial pressure of >20 mmHg. There is no pericardial effusion. CONCLUSIONS -------- 1. Sinus rhythm. 2. This was a technically good study. 3. The left ventricular size is normal. 4. There is mild concentric left ventricular hypertrophy. 5. Overall left ventricular systolic function is normal with, an EF between 55 - 60 %. 6. The right ventricle is normal in size. 7. Normal LA size by volume 22+/-6 ml/m2. 8. The right atrial size is normal. 9. Interatrial and interventricular septum intact. 10. Aortic valve is trileaflet and is mildly thickened. 11. The mitral valve is normal. 12. There is trace mitral regurgitation. 13. Severe tricuspid regurgitation present. 14. There is moderate pulmonary hypertension. 15. The right ventricular systolic pressure, as measured by Doppler, is 55.84mmHg. 16. There is no pulmonic regurgitation present. 17. The aortic root size is normal. 18. The inferior vena cava is dilated with no significant inspiratory collapse which is consistent es timated right atrial pressure of >20 mmHg. 19. There is no pericardial effusion. [employer] WORKER: Tia Rivera RDCS
--- NOTE | 2018-09-26 16:01 | P.GSCN ---
History of Present Illness Consult date: 09/26/18 Reason for Consult: Cholecystitis Requesting physician: Tino Mattson History of present illness: CHIEF COMPLAINT: Cholelithiasis HISTORY OF PRESENT ILLNESS: 78-year-old female who was transferred to [facility] from [facility] yesterday. She was scheduled to have cholecystectomy. Patient was found to have elevated liver enzymes and leukocytosis and was transferred for further evaluation. Patient was also noted to have abnormal troponins and cardiology was consulted for further evaluation. She was initially started on a heparin drip which has been discontinued. Echocardiogram is pending. Patient currently reports mild abdominal discomfort. Denies nausea or vomiting. WBC on admission 17.2. Repeat 14.7. Hemoglobin stable at 10.8. Total bilirubin on admission 3.8. AST 459. ALT 327. Alkaline phosphatase 332. Repeat labs this morning reveal bilirubin 2.0. AST 260. ALT 280. Alkaline phosphatase 283. Patient's vital signs have been stable. She is afebrile. PAST MEDICAL HISTORY: See list. PAST SURGICAL HISTORY: See list. SOCIAL HISTORY: No illicit drug use. REVIEW OF SYSTEMS: CONSTITUTIONAL: Denies fever or chills. HEENT: Denies blurred vision, vision changes, or eye pain. Denies hemoptysis CARDIOVASCULAR: Denies chest pain or pressure. RESPIRATORY: No shortness of breath. GASTROINTESTINAL: Refer to HPI for pertinent findings HEMATOLOGIC: Denies bleeding disorders. GENITOURINARY: Denies any blood in urine. SKIN: Denies pruitis. Denies rash. PHYSICAL EXAM: VITAL SIGNS: Reviewed. GENERAL: Well-developed in no acute distress. Very mild jaundice. HEENT: Minimal sclera icterus. Extraocular movements grossly intact. Moist buccal mucosa. Head is atraumatic, normocephalic. ABDOMEN: Soft. Nondistended. Mild tenderness with palpation. Positive bowel sounds. NEUROLOGIC: Alert and oriented. Cranial nerves II through XII grossly intact. ASSESSMENT: 1. Acute cholecystitis 2. Cholelithiasis with transaminitis and hyperbilirubinemia, possible choledocholithiasis 3. Leukocytosis PLAN: 1. NPO. Continue IV fluids 2. Continue Zosyn 3. GI on consult. Possible ERCP tomorrow. However LFTs are improving. Will defer decision to GI service. 4. Patient tentatively scheduled for laparoscopic cholecystectomy tomorrow if LFTs continue to trend downward Nurse practitioner note has been reviewed by physician. Signing provider agrees with the documented findings, assessment, and plan of care. Past Medical History Past Medical History: Cancer Additional Past Medical History / Comment(s): skin ca. History of Any Multi-Drug Resistant Organisms: None Reported Past Surgical History: Tubal Ligation Past Anesthesia/Blood Transfusion Reactions: No Reported Reaction Past Psychological History: No Psychological Hx Reported Smoking Status: Never smoker Past Alcohol Use History: None Reported Medications and Allergies Home Medications Medication Instructions Recorded Confirmed Type Acetaminophen Tab [Tylenol Tab] 1,000 mg PO Q6H PRN 09/25/18 09/25/18 History Fish Oil/Dha/Epa [Fish Oil 1,200 1 cap PO DAILY 09/25/18 09/25/18 History mg Fish Oil] Vitamin B Complex 1 cap PO DAILY 09/25/18 09/25/18 History Allergies Allergy/AdvReac Type Severity Reaction Status Date / Time No Known Allergies Allergy Unverified 09/25/18 17:39 Surgical - Exam Vital Signs Temp Pulse Resp BP Pulse Ox 98.7 F 97 16 100/67 93 L 09/25/18 17:29 09/25/18 17:29 09/25/18 17:29 09/25/18 17:29 09/25/18 17:29 Results - Labs 09/26/18 03:36 09/26/18 10:20 Abnormal Lab Results - Last 24 Hours (Table) 09/25/18 09/25/18 09/26/18 Range/Units 18:16 18:16 00:00 WBC (3.8-10.6) k/uL RBC (3.80-5.40) m/uL Hgb (11.4-16.0) gm/dL Hct (34.0-46.0) % Neutrophils # (1.3-7.7) k/uL Lymphocytes # (1.0-4.8) k/uL APTT (22.0-30.0) sec Potassium 3.3 L (3.5-5.1) mmol/L Glucose 116 H (74-99) mg/dL Calcium (8.4-10.2) mg/dL Total Bilirubin 3.8 H (0.2-1.3) mg/dL AST 459 H (14-36) U/L ALT 327 H (9-52) U/L Alkaline Phosphatase 332 H (38-126) U/L Troponin I 0.211 H* (0.000-0.034) ng/mL Total Protein 5.8 L (6.3-8.2) g/dL Albumin 3.1 L (3.5-5.0) g/dL LDL Cholesterol, Calc (0-99) mg/dL HDL Cholesterol (40-60) mg/dL Lipase 14 L (23-300) U/L Urine Appearance Cloudy H (Clear) Urine Protein 2+ H (Negative) Urine Glucose (UA) Trace H (Negative) Urine Ketones 3+ H (Negative) Urine Bilirubin 2+ H (Negative) Ur Leukocyte Esterase Small H (Negative) Urine RBC 15 H (0-5) /hpf Urine WBC 31 H (0-5) /hpf Hyaline Casts 8 H (0-2) /lpf Urine Mucus Few H (None) /hpf 09/26/18 09/26/18 09/26/18 Range/Units 00:27 00:37 03:36 WBC 17.2 H (3.8-10.6) k/uL RBC 3.63 L (3.80-5.40) m/uL Hgb 10.9 L (11.4-16.0) gm/dL Hct 32.9 L (34.0-46.0) % Neutrophils # (1.3-7.7) k/uL Lymphocytes # (1.0-4.8) k/uL APTT (22.0-30.0) sec Potassium (3.5-5.1) mmol/L Glucose (74-99) mg/dL Calcium 8.0 L (8.4-10.2) mg/dL Total Bilirubin (0.2-1.3) mg/dL AST (14-36) U/L ALT (9-52) U/L Alkaline Phosphatase (38-126) U/L Troponin I 0.143 H* (0.000-0.034) ng/mL Total Protein (6.3-8.2) g/dL Albumin (3.5-5.0) g/dL LDL Cholesterol, Calc 114 H (0-99) mg/dL HDL Cholesterol 30 L (40-60) mg/dL Lipase (23-300) U/L Urine Appearance (Clear) Urine Protein (Negative) Urine Glucose (UA) (Negative) Urine Ketones (Negative) Urine Bilirubin (Negative) Ur Leukocyte Esterase (Negative) Urine RBC (0-5) /hpf Urine WBC (0-5) /hpf Hyaline Casts (0-2) /lpf Urine Mucus (None) /hpf 09/26/18 09/26/18 09/26/18 Range/Units 03:36 03:36 06:27 WBC 14.7 H (3.8-10.6) k/uL RBC 3.64 L (3.80-5.40) m/uL Hgb 10.8 L (11.4-16.0) gm/dL Hct 33.1 L (34.0-46.0) % Neutrophils # 12.9 H (1.3-7.7) k/uL Lymphocytes # 0.6 L (1.0-4.8) k/uL APTT 41.7 H (22.0-30.0) sec Potassium (3.5-5.1) mmol/L Glucose (74-99) mg/dL Calcium (8.4-10.2) mg/dL Total Bilirubin (0.2-1.3) mg/dL AST (14-36) U/L ALT (9-52) U/L Alkaline Phosphatase (38-126) U/L Troponin I 0.108 H* (0.000-0.034) ng/mL Total Protein (6.3-8.2) g/dL Albumin (3.5-5.0) g/dL LDL Cholesterol, Calc (0-99) mg/dL HDL Cholesterol (40-60) mg/dL Lipase (23-300) U/L Urine Appearance (Clear) Urine Protein (Negative) Urine Glucose (UA) (Negative) Urine Ketones (Negative) Urine Bilirubin (Negative) Ur Leukocyte Esterase (Negative) Urine RBC (0-5) /hpf Urine WBC (0-5) /hpf Hyaline Casts (0-2) /lpf Urine Mucus (None) /hpf 09/26/18 09/26/18 Range/Units 10:20 10:20 WBC (3.8-10.6) k/uL RBC (3.80-5.40) m/uL Hgb (11.4-16.0) gm/dL Hct (34.0-46.0) % Neutrophils # (1.3-7.7) k/uL Lymphocytes # (1.0-4.8) k/uL APTT 41.3 H (22.0-30.0) sec Potassium (3.5-5.1) mmol/L Glucose (74-99) mg/dL Calcium 8.3 L (8.4-10.2) mg/dL Total Bilirubin 2.0 H (0.2-1.3) mg/dL AST 268 H (14-36) U/L ALT 280 H (9-52) U/L Alkaline Phosphatase 283 H (38-126) U/L Troponin I (0.000-0.034) ng/mL Total Protein 5.4 L (6.3-8.2) g/dL Albumin 2.8 L (3.5-5.0) g/dL LDL Cholesterol, Calc (0-99) mg/dL HDL Cholesterol (40-60) mg/dL Lipase (23-300) U/L Urine Appearance (Clear) Urine Protein (Negative) Urine Glucose (UA) (Negative) Urine Ketones (Negative) Urine Bilirubin (Negative) Ur Leukocyte Esterase (Negative) Urine RBC (0-5) /hpf Urine WBC (0-5) /hpf Hyaline Casts (0-2) /lpf Urine Mucus (None) /hpf Microbiology - Last 24 Hours (Table) 09/26/18 00:00 Urine Culture - Preliminary Urine,Voided Diabetes panel 09/25/18 09/26/18 09/26/18 Range/Units 18:16 03:36 10:20 Sodium 139 137 138 (137-145) mmol/L Potassium 3.3 L 3.5 3.8 (3.5-5.1) mmol/L Chloride 104 103 105 (98-107) mmol/L Carbon Dioxide 26 25 22 (22-30) mmol/L BUN 11 15 15 (7-17) mg/dL Creatinine 0.66 0.66 0.73 (0.52-1.04) mg/dL Glucose 116 H 78 78 (74-99) mg/dL Calcium 8.4 8.0 L 8.3 L (8.4-10.2) mg/dL AST 459 H 268 H (14-36) U/L ALT 327 H 280 H (9-52) U/L Alkaline Phosphatase 332 H 283 H (38-126) U/L Total Protein 5.8 L 5.4 L (6.3-8.2) g/dL Albumin 3.1 L 2.8 L (3.5-5.0) g/dL Triglycerides 76 (<150) mg/dL HDL Cholesterol 30 L (40-60) mg/dL Calcium panel 09/25/18 09/26/18 09/26/18 Range/Units 18:16 03:36 10:20 Calcium 8.4 8.0 L 8.3 L (8.4-10.2) mg/dL Albumin 3.1 L 2.8 L (3.5-5.0) g/dL Pituitary panel 09/25/18 09/26/18 09/26/18 Range/Units 18:16 03:36 10:20 Sodium 139 137 138 (137-145) mmol/L Potassium 3.3 L 3.5 3.8 (3.5-5.1) mmol/L Chloride 104 103 105 (98-107) mmol/L Carbon Dioxide 26 25 22 (22-30) mmol/L BUN 11 15 15 (7-17) mg/dL Creatinine 0.66 0.66 0.73 (0.52-1.04) mg/dL Glucose 116 H 78 78 (74-99) mg/dL Calcium 8.4 8.0 L 8.3 L (8.4-10.2) mg/dL Adrenal panel 09/25/18 09/26/18 09/26/18 Range/Units 18:16 03:36 10:20 Sodium 139 137 138 (137-145) mmol/L Potassium 3.3 L 3.5 3.8 (3.5-5.1) mmol/L Chloride 104 103 105 (98-107) mmol/L Carbon Dioxide 26 25 22 (22-30) mmol/L BUN 11 15 15 (7-17) mg/dL Creatinine 0.66 0.66 0.73 (0.52-1.04) mg/dL Glucose 116 H 78 78 (74-99) mg/dL Calcium 8.4 8.0 L 8.3 L (8.4-10.2) mg/dL Total Bilirubin 3.8 H 2.0 H (0.2-1.3) mg/dL AST 459 H 268 H (14-36) U/L ALT 327 H 280 H (9-52) U/L Alkaline Phosphatase 332 H 283 H (38-126) U/L Total Protein 5.8 L 5.4 L (6.3-8.2) g/dL Albumin 3.1 L 2.8 L (3.5-5.0) g/dL
[2018-09-26] MEDS: PIPERACILLIN-TAZOBACTAM 3.375 GM in SODIUM CHLORIDE 0.9% 100 ML IVPB SCH ×2 (17:28→22:49)
[2018-09-26] MEDS: HEPARIN SODIUM,PORCINE 5,000 UNIT/ML 1 ML VIAL SQ SCH (20:09)
[2018-09-27 07:05] LABS: HGB 10.8 gm/dL (11.4-16.0); MCH 31.1 pg (25.0-35.0); MCHC 33.7 g/dL (31.0-37.0); MCV 92.4 fL (80.0-100.0); Mean Platelet Volume 8.4; Platelet Count 194 k/uL (150-450); RBC 3.46 m/uL (3.80-5.40); RDW 12.4 % (11.5-15.5); WBC 10.3 k/uL (3.8-10.6)
[2018-09-27 07:16] LABS: ALT 170 U/L (9-52); AST 98 U/L (14-36); African American GFR (CKD) >90 (>60 ml/min/1.73 sqM); Albumin 2.8 g/dL (3.5-5.0); Alkaline Phosphatase 248 U/L (38-126); Anion Gap 13 mmol/L; Blood Urea Nitrogen 14 mg/dL (7-17); Calcium 8.3 mg/dL (8.4-10.2); Carbon Dioxide 21 mmol/L (22-30); Chloride 105 mmol/L (98-107); Glucose 56 mg/dL (74-99); Potassium 3.5 mmol/L (3.5-5.1); Sodium 139 mmol/L (137-145); Total Bilirubin 1.1 mg/dL (0.2-1.3); Total Protein 5.5 g/dL (6.3-8.2)
[2018-09-27] MEDS: PANTOPRAZOLE 40 MG/10 ML VIAL IVP SCH ×2 (08:36→20:09)
[2018-09-27] MEDS: ASPIRIN 81 MG PO SCH (08:36)
[2018-09-27] MEDS: METOPROLOL TARTRATE 12.5 MG TAB PO SCH (08:36)
[2018-09-27] MEDS: HEPARIN SODIUM,PORCINE 5,000 UNIT/ML 1 ML VIAL SQ SCH ×3 (08:37→20:09)
[2018-09-27] MEDS: SODIUM CHLORIDE 0.9% 1,000 ML IV SCH ×2 (08:37→16:32)
[2018-09-27] MEDS: PIPERACILLIN-TAZOBACTAM 3.375 GM in SODIUM CHLORIDE 0.9% 100 ML IVPB SCH ×3 (08:37→22:36)
[2018-09-27] MEDS ORDERED: INDOMETHACIN 50MG SUPPOSITORY RECTAL ONE (09:00)
--- NOTE | 2018-09-27 10:56 | P.PN ---
Subjective Progress Note Date: 09/27/18 Principal diagnosis: Cholelithiasis elevated liver enzymes 78-year-old female tolerated yesterday for elevated liver enzymes underlying cholelithiasis but choledocholithiasis. LFTs continue to improve. This morning total bilirubin is normalized 1.1. Laparoscopic cholecystectomy scheduled later today with general surgery. AST 98. ALT 170. AP 248. Afebrile. Objective - Vital Signs Vital signs: Vital Signs Temp 98.2 F 09/27/18 03:28 Pulse 95 09/27/18 03:28 Resp 18 09/27/18 03:28 BP 117/58 09/27/18 03:28 Pulse Ox 98 09/27/18 03:28 Intake & Output 09/26/18 09/27/18 09/27/18 18:59 06:59 18:59 Intake Total 180 Output Total 200 400 Balance 180 -200 -400 Weight 72.9 kg Intake: Oral 180 Output: Urine 200 400 Other: Voiding Method Toilet Toilet # Voids 1 1 - Exam General appearance: The patient is alert, oriented, in no acute distress. HET: Head is normocephalic and atraumatic. Pupils are equal and reactive. Oropharynx is clear without lesions. Neck: Supple without lymphadenopathy. Trachea midline. Heart: S1 S2. Regular rate and rhythm. Lungs: No crackles or wheezes are heard. Abdomen: Soft, mild tenderness right upper quadrant, nondistended with bowel sounds. No peritoneal signs. No palpable organomegaly or masses. Extremities: Normal skin color and turgor. No cyanosis, rash, ulceration, clubbing, or edema. Radial and pedal pulses are 2/4 bilaterally. Neurological: No focal deficits. Strength and sensation are grossly intact. - Labs CBC & Chem 7: 09/27/18 06:12 09/27/18 06:12 Labs: Abnormal Lab Results - Last 24 Hours (Table) 09/26/18 09/26/18 09/27/18 Range/Units 10:20 10:20 06:12 RBC 3.46 L (3.80-5.40) m/uL Hgb 10.8 L (11.4-16.0) gm/dL Hct 32.0 L (34.0-46.0) % APTT 41.3 H (22.0-30.0) sec Carbon Dioxide (22-30) mmol/L Glucose (74-99) mg/dL Calcium 8.3 L (8.4-10.2) mg/dL Total Bilirubin 2.0 H (0.2-1.3) mg/dL AST 268 H (14-36) U/L ALT 280 H (9-52) U/L Alkaline Phosphatase 283 H (38-126) U/L Total Protein 5.4 L (6.3-8.2) g/dL Albumin 2.8 L (3.5-5.0) g/dL 09/27/18 Range/Units 06:12 RBC (3.80-5.40) m/uL Hgb (11.4-16.0) gm/dL Hct (34.0-46.0) % APTT (22.0-30.0) sec Carbon Dioxide 21 L (22-30) mmol/L Glucose 56 L (74-99) mg/dL Calcium 8.3 L (8.4-10.2) mg/dL Total Bilirubin (0.2-1.3) mg/dL AST 98 H (14-36) U/L ALT 170 H (9-52) U/L Alkaline Phosphatase 248 H (38-126) U/L Total Protein 5.5 L (6.3-8.2) g/dL Albumin 2.8 L (3.5-5.0) g/dL Microbiology - Last 24 Hours (Table) 09/25/18 21:45 Blood Culture - Preliminary Blood No Growth after 24 hours 09/26/18 00:00 Urine Culture - Preliminary Urine,Voided Assessment and Plan (1) Acute abdominal pain Narrative/Plan: 78-year-old female admitted with acute midepigastric abdominal pain with a history of known cholelithiasis scheduled for outpatient cholecystectomy with worsening liver function tests new-onset of obstructive jaundice suspected ch oledocholithiasis. Biochemically transaminases total bilirubin are improving suspect passage of cho ledocholithiasis. Current Visit: Yes Status: Acute Code(s): R10.9 - UNSPECIFIED ABDOMINAL PAIN SNOMED Code(s): 441788510 (2) Elevated liver enzymes Current Visit: Yes Status: Acute Code(s): R74.8 - ABNORMAL LEVELS OF OTHER SERUM ENZYMES SNOMED Code(s): 925777208 (3) Cholelithiasis Current Visit: Yes Status: Acute Code(s): K80.20 - CALCULUS OF GALLBLADDER W/O CHOLECYSTITIS W/O OBSTRUCTION SNOMED Code(s): 160312379 Plan: 1. Nothing by mouth. Proceed with laparoscopic cholecystectomy today. Case was discussed with Dr. Munoz. ERCP canceled secondary to improvement of liver function tests and total bilirubin. Assessment and plan a care discussed with Dr. Greenwood
[2018-09-27] MEDS ORDERED: IV FLUID CONTINUATION 1,000 ML IV ONE (13:38)
[2018-09-27] MEDS ORDERED: DEXAMETHASONE SOD PHOSPHATE 10 MG/ML 1 ML VIAL IV ONE (13:39)
[2018-09-27] MEDS ORDERED: ONDANSETRON 4 MG/2 ML VIAL IVP ONE (13:40)
[2018-09-27] MEDS ORDERED: GLYCOPYRROLATE 0.2 MG/ML 2 ML VIAL ONE (13:59)
[2018-09-27] MEDS ORDERED: PROPOFOL 10 MG/ML 20 ML VIAL IV ONE (13:59)
[2018-09-27] MEDS ORDERED: KETOROLAC 30 MG/ML 1 ML VIAL ONE (13:59)
[2018-09-27] MEDS ORDERED: LIDOCAINE 1% INJ 10MG/ML (20 ML MDV) ONE (13:59)
[2018-09-27] MEDS ORDERED: fentaNYL (PF) 50 MCG/ML 2 ML AMP ONE (13:59)
[2018-09-27] MEDS ORDERED: ePHEDrine SULFATE/0.9% NACL/PF 50 MG/5 ML SYRINGE IV ONE (13:59)
[2018-09-27] MEDS ORDERED: NEOSTIGMINE 1 MG/ML 10 ML VIAL ONE (13:59)
[2018-09-27] MEDS ORDERED: SUCCINYLCHOLINE CHLORIDE 100 MG/5 ML SYR IV ONE (13:59)
[2018-09-27] MEDS ORDERED: ROCURONIUM BROMIDE 10 MG/ML 10 ML VIAL IV ONE (13:59)
[2018-09-27] MEDS ORDERED: BUPIVACAIN-EPI 0.25%-1:200,000 30 ML VIAL SQ ONE (14:23)
--- NOTE | 2018-09-27 15:24 | P.OP ---
Date of Procedure: 09/27/18 Preoperative Diagnosis: Cholecystitis Postoperative Diagnosis: Acute and chronic cholecystitis Procedure(s) Performed: Laparoscopic cholecystectomy Anesthesia: CORIN Surgeon: Mukesh Munoz Estimated Blood Loss (ml): 20 Pathology: other (Gallbladder) Condition: stable Disposition: PACU Description of Procedure: The patient was placed on the operating table. The patient received a general endotracheal tube anesthesia. The patients abdomen was prepped and draped in the usual sterile fashion. Through an infraumbilical stab incision, the fascia of the anterior abdominal wall was grasped with a pair of Kochers and then the Veress needle was placed in the peritoneal cavity. Position of the Veress needle was confirmed with positive drop test. The abdomen was then insufflated. After adequate insufflation, the 10 mm trocar was placed in the peritoneal cavity. Following this the laparoscope was placed in the peritoneal cavity. The patient was placed in the head-up, right side up position and then a 5 mm trocar was placed in the right lateral and right subcostal position under direct visualization. A 8 mm trocar was placed in the epigastric position. The gallbladder was grossly inflamed. There were adhesions to the gallbladder. The right colon was stuck on the gallbladder. The colon was dissected free from the gallbladder. The gallbladder wall was very thick. It appeared to have some patchy necrosis. The gallbladder was grasped on the infundibulum and retracted cephalad. The cruzito was very inflamed. The cystic duct could not be safely identified. At this point is decided to perform a subtotal cholecystectomy. Using a [place] dissector the infundibulum the gallbladder was dissected and then a 2-0 Ethibond suture was placed around the neck of the gallbladder. This was secured with a tie knot device. Then using the Harmonic scissors the gallbladder was divided and then the gallbladder was removed from liver bed using the Harmonic scissors. The cautery was used to coagulate any small bleeding vessels. The gallbladder was then placed into a 10 mm Endo Catch which was placed through the 10 mm epigastric trocar. The gallbladder was removed. The liver bed was checked for hemostasis. No bleeding was seen. A 18-Frisian channel drains placed into the peritoneal cavity and brought out through the lateral 5 mm trocar site. The abdomen. No bleeding seen. The trochars withdrawn. The skin was closed with 3-0 Monocryl suture. Dermabond was applied. Patient top she will was sent to recovery in stable condition.
--- NOTE | 2018-09-27 15:51 | P.PN ---
Subjective Progress Note Date: 09/27/18 This is a pleasant 78-year-old female with no prior documented history of hypertension, no diabetes, no hyperlipidemia, she is a nonsmoker, does not drink alcohol. She was a transfer from [facility]. Patient apparently was scheduled to undergo cholecystectomy for acute cholecystitis, she was found to have a significantly elevated white blood cell count and arranged for transfer here to the higher level of care. A troponin was also drawn at the prior institution which came back to be mildly abnormal. Patient denies having any chest discomfort at present or in the past couple of weeks. Her breathing overall is stable. White blood cell count at [facility] 24.8, hemoglobin 12.4, platelet count 193, sodium 137, potassium 3.1, BUN 9 and creatinine 0.8. ALT 354 alk phos 392 total bili 4.6 albumin 3.4 lactic acid 1.2 troponin 0.2 blood pressure at [facility] 108/58 with a heart rate of 117, respirations 20, afebrile CAT scan of the abdomen and pelvis revealed acute cholecystitis with cholelithiasis, chest x-ray did not reveal any acute abnormality. They did not send an EKG from [facility] EKG performed on arrival here shows a normal sinus rhythm with no acute changes. Blood pressure 92/50 with a heart rate of 90, 94% on room air. White blood cell count on arrival 17.2, 14.7 this morning. Hemoglobin 10.8, platelet count 185. Sodium 137, potassium 3.5, BUN 15 and cr eatinine 0.6. Troponins here at [facility] 0.14, 0.10. Cholesterol 159, LDL 114 and HDL 30. At the time of my examination this morning, the patient is quite comfortable, she denies any chest discomfort, has some mild abdominal discomfort, and her breathing is stable. Patient was seen and examined today, scheduled for laparoscopic cholecystectomy today. Blood pressure 127/70 with a heart rate of 90, 95% on room air.White blood cell count 10.3, hemoglobin 10.8, platelet count 194. Sodium 139, p otassium 3.5, BUN 14 and creatinine 0.6. Objective - Vital Signs Vital signs: Vital Signs Temp 97.5 F L 09/27/18 15:24 Pulse 103 H 09/27/18 15:24 Resp 16 09/27/18 15:24 BP 127/67 09/27/18 15:24 Pulse Ox 95 09/27/18 15:24 Intake & Output 09/26/18 09/27/18 09/27/18 18:59 06:59 18:59 Intake Total 180 750 Output Total 200 920 Balance 180 -200 -170 Weight 72.9 kg Intake: IV 750 Oral 180 Output: Urine 200 900 Estimated Blood Loss 20 Other: Voiding Method Toilet Toilet Toilet # Voids 1 1 - Exam PHYSICAL EXAMINATION: GENERAL: 78-year-old female in no acute distress at the time of my examination HEENT: Head is atraumatic, normocephalic. Pupils equal, round. Sclera anicteric. Conjunctiva are clear. Mucous membranes of the mouth are moist. Neck is supple. There is no elevated jugular venous pressure. No carotid bruit is heard. HEART EXAMINATION: Heart S1 and S2 with soft systolic murmur is heard CHEST EXAMINATION: Lungs reveal some scattered coarse rhonchi that clear with cough. ABDOMEN: Soft, mild right upper quadrant tenderness on palpation . Bowel sounds are heard. No organomegaly noted. EXTREMITIES: 2+ peripheral pulses with no evidence of peripheral edema and no calf tenderness noted. NEUROLOGIC patient is awake, alert and oriented 3 . - Labs CBC & Chem 7: 09/27/18 06:12 09/27/18 06:12 Labs: Abnormal Lab Results - Last 24 Hours (Table) 09/27/18 09/27/18 Range/Units 06:12 06:12 RBC 3.46 L (3.80-5.40) m/uL Hgb 10.8 L (11.4-16.0) gm/dL Hct 32.0 L (34.0-46.0) % Carbon Dioxide 21 L (22-30) mmol/L Glucose 56 L (74-99) mg/dL Calcium 8.3 L (8.4-10.2) mg/dL AST 98 H (14-36) U/L ALT 170 H (9-52) U/L Alkaline Phosphatase 248 H (38-126) U/L Total Protein 5.5 L (6.3-8.2) g/dL Albumin 2.8 L (3.5-5.0) g/dL Microbiology - Last 24 Hours (Table) 09/26/18 00:00 Urine Culture - Final Urine,Voided 09/25/18 21:45 Blood Culture - Preliminary Blood No Growth after 24 hours Assessment and Plan Plan: Assessment and plan #1 acute cholecystitis with elevated white blood cell count #2 abnormal troponin, not consistent with acute coronary syndrome, likely secondary to the acute cholecystitis #3 cardiac risk factors negative for hypertension, no diabetes, no hyperlipidemia, patient is a nonsmoker Plan Echo cardiac gram with Doppler study was performed which revealed an ejection fraction of 55-60%. Patient is scheduled today to undergo laparoscopic cholecystectomy. We will continue to follow DNP note has been reviewed, I agree with a documented findings and plan of care. Patient was seen and examined.
[2018-09-27] MEDS: MORPHINE SULFATE 4 MG/ML SYRINGE IV PRN (17:44)
--- NOTE | 2018-09-27 19:17 | PN ---
PROGRESS NOTE DATE OF SERVICE: 09/27/2018. This 78-year-old woman who was admitted with cholelithiasis and cholecystitis is being closely monitored. No chest pain. No palpitations. No fever. EXAM: Alert and oriented x3. The pulse is 93, blood pressure 130/60. Respirations 16, temperature 97.5, pulse ox 97% on 3 L. HEENT is conjunctivae normal. NECK is no JVD. CARDIOVASCULAR: S1, S2 muffled. RESPIRATIONS: Breath sounds diminished in the bases. A few scattered rhonchi. No crackles. ABDOMEN is soft. Mild diffuse tenderness. No guarding. No rigidity. LEGS are no edema. No swelling. CENTRAL NERVOUS SYSTEM: No focal deficits. LAB STUDIES: WBC 10.2, hemoglobin 10.8 and AST is 98, ALT is 170. Troponin 0.108. ASSESSMENT: 1. Cholecystitis and cholelithiasis, status post laparoscopic cholecystectomy. 2. Troponin 0.108, indeterminate per Cardiology, not consistent with acute coronary syndrome likely secondary to acute cholecystitis and sepsis. 3. Elevated liver enzymes possibly secondary to choledocholithiasis. 4. History of skin cancer. 5. Anemia of chronic disease. RECOMMENDATIONS AND DISCUSSION: This 78-year-old woman who presented with multiple medical issues, we will monitor the patient closely. Continue the current medications, management and symptomatic treatment. Otherwise, broad-spectrum IV antibiotics. Closely follow with surgery, Gastroenterology. Guarded prognosis because of multiple complex medical issues. Further recommendations to follow. MMODL / IJN: [id number] /
[2018-09-28] MEDS: SODIUM CHLORIDE 0.9% 1,000 ML IV SCH ×2 (02:35→11:30)
[2018-09-28] MEDS: HEPARIN SODIUM,PORCINE 5,000 UNIT/ML 1 ML VIAL SQ SCH ×2 (08:34→21:26)
[2018-09-28] MEDS: PANTOPRAZOLE 40 MG/10 ML VIAL IVP SCH ×2 (08:34→21:25)
[2018-09-28] MEDS: MORPHINE SULFATE 4 MG/ML SYRINGE IV PRN (08:34)
[2018-09-28] MEDS: PIPERACILLIN-TAZOBACTAM 3.375 GM in SODIUM CHLORIDE 0.9% 100 ML IVPB SCH ×2 (08:34→15:34)
[2018-09-28] MEDS: METOPROLOL TARTRATE 12.5 MG TAB PO SCH (08:34)
[2018-09-28] MEDS: ASPIRIN 81 MG PO SCH (08:34)
[2018-09-28] MEDS: MORPHINE SULFATE 4 MG/ML SYRINGE IVP PRN ×3 (13:46→21:26)
[2018-09-28] MEDS ORDERED: HYDROcodone/APAP 5-325MG 1 EACH TAB PO PRN (15:18)
--- NOTE | 2018-09-28 15:22 | P.PN ---
Subjective Progress Note Date: 09/28/18 CHIEF COMPLAINT: Cholelithiasis HISTORY OF PRESENT ILLNESS: Patient seen and examined at the bedside. She is status post arthroscopic cholecystectomy. Postop day #1. Patient reports significant abdominal pain this morning. SHANIQUE drain intact with serosanguineous drainage. Patient tolerating clear liquid diet. Denies nausea or vomiting. WBC 10.3. Hemoglobin 10.8. LFTs improving. PHYSICAL EXAM: VITAL SIGNS: Reviewed. GENERAL: Well-developed in no acute distress. Very mild jaundice. HEENT: Minimal sclera icterus. Extraocular movements grossly intact. Moist buccal mucosa. Head is atraumatic, normocephalic. ABDOMEN: Soft. Nondistended. Appropriate surgical tenderness. Positive bowel sounds. SHANIQUE drain with serosanguineous drainage. Incision sites clean dry and intact without drainage or signs of infection. NEUROLOGIC: Alert and oriented. Cranial nerves II through XII grossly intact. ASSESSMENT: 1. Acute cholecystitis 2. Cholelithiasis with transaminitis and hyperbilirubinemia, possible pedro pablo docholithiasis 3. Leukocytosis PLAN: 1. Continue clear liquid diet today 2. Continue Zosyn 3. Pain control. Morphine ordered when necessary. Will add [place]. 4. Continue to monitor drainage from SHANIQUE drain 5. Activity as tolerated. PT OT on consult 6. Incentive spirometry Nurse practitioner note has been reviewed by physician. Signing provider agrees with the documented findings, assessment, and plan of care. Objective - Vital Signs Vital signs: Vital Signs Temp 97.8 F 09/28/18 12:00 Pulse 85 09/28/18 12:00 Resp 22 09/28/18 12:00 BP 131/76 09/28/18 12:00 Pulse Ox 93 L 09/28/18 12:00 Intake & Output 09/27/18 09/28/18 09/28/18 18:59 06:59 18:59 Intake Total 970 400 Output Total 920 655 200 Balance 50 -655 200 Weight 73.8 kg Intake: IV 970 Oral 400 Output: Drainage 30 Abdomen 30 Urine 900 625 200 Estimated Blood Loss 20 Other: Voiding Method Toilet Toilet Toilet # Voids 1 1 - Labs CBC & Chem 7: 09/27/18 06:12 09/27/18 06:12 Labs: Microbiology - Last 24 Hours (Table) 09/25/18 21:45 Blood Culture - Preliminary Blood No Growth after 48 hours 09/26/18 00:00 Urine Culture - Final Urine,Voided
--- NOTE | 2018-09-28 23:47 | P.PN ---
Subjective Progress Note Date: 09/28/18 Principal diagnosis: This is an 78 year old female that was recently admitted for cholelithiasis and cholecystitis as well as an NSTEMI and is being closely monitored. Patient is be ing follow by GI, surgery, as well as cardiology. Patient is sitting up in bed eating lunch in no acute distress. Patient is having some abdominal distention with tenderness upon palpation today. Patient states that she is not passing much gas and has not had a bowel movement. PT and OT are following. Patient is denying any chest pain or shortness of breath at this time. Patient is afebrile. Patient is currently on IV antibiotics. Guarded prognosis. Objective - Vital Signs Vital signs: Vital Signs Temp 97.1 F L 09/28/18 15:49 Pulse 90 09/28/18 15:49 Resp 22 09/28/18 15:49 BP 127/68 09/28/18 15:49 Pulse Ox 90 L 09/28/18 15:49 Intake & Output 09/28/18 09/28/18 09/29/18 06:59 18:59 06:59 Intake Total 400 Output Total 655 200 Balance -655 200 Weight 73.8 kg Intake: Oral 400 Output: Drainage 30 Abdomen 30 Urine 625 200 Other: Voiding Method Toilet Toilet # Voids 1 1 - Exam PHYSICAL EXAMINATION: GENERAL: The patient is alert and oriented x3, not in any acute distress. Obese. Vital signs are stable. Blood pressure is 131/76, pulse is 75, respirations are 18, temp is 97.8F, oxygen saturation is 93% on room air HEENT: Pupils are round and equally reacting to light. EOMI. No scleral icterus. No conjunctival pallor. Normocephalic, atraumatic. No pharyngeal erythema. No thyromegaly. CARDIOVASCULAR: S1 and S2 muffled. No murmurs, rubs, or gallops. PULMONARY: Diminished lung sounds in the bases, no wheezing or crackles. ABDOMEN: Soft, mild tenderness upon palpation, mildly distended, normoactive bowel sounds. No palpable organomegaly. SHANIQUE drain noted. MUSCULOSKELETAL: No joint swelling or deformity. EXTREMITIES: No cyanosis, clubbing, or pedal edema. NEUROLOGICAL: Gross neurological examination did not reveal any focal deficits. SKIN: no rashes noted - Labs CBC & Chem 7: 09/27/18 06:12 08/07/19 06:12 Labs: Microbiology - Last 24 Hours (Table) 09/25/18 21:45 Blood Culture - Preliminary Blood No Growth after 48 hours Assessment and Plan Assessment: Cholecystitis and cholelithiasis, status post laparoscopic cholecystectomy post op Day #1 Troponin 0.108, indeterminate per cardiology, not consistent with acute coronary syndrome likely secondary to acute cholecystitis and sepsis Elevated liver enzymes possibly secondary to choledocholelithiasis, improving, trending down. Will continue to monitor closely. Will check am labs History of skin cancer Anemia of chronic disease. Recommendations and discussion: Recommend to continue current medication management and symptomatic treatment. Will monitor labs and vitals closely. PT/OT following. Continue to encourage incentive spirometry use. Continue clear liquid diet. Patient will continue with IV antibiotics. Surgery following closely as well as GI. Guarded prognosis. Furt her recommendations to follow. Possible discharge in 24-48 hours.
[2018-09-29] MEDS: PIPERACILLIN-TAZOBACTAM 3.375 GM in SODIUM CHLORIDE 0.9% 100 ML IVPB SCH ×3 (00:13→12:18)
[2018-09-29 02:16] VITALS: PULSE 90
[2018-09-29 07:42] LABS: Basophils % (A) 0 %; Eosinophils # (A) 0.1 k/uL (0-0.7); Eosinophils % (A) 1 %; HCT 34.1 % (34.0-46.0); HGB 11.5 gm/dL (11.4-16.0); Lymphocytes # (A) 0.7 k/uL (1.0-4.8); Lymphocytes % (A) 6 %; MCH 30.7 pg (25.0-35.0); MCHC 33.7 g/dL (31.0-37.0); MCV 91.2 fL (80.0-100.0); Monocytes # (A) 0.8 k/uL (0-1.0); Monocytes % (A) 7 %; Neutrophils # (A) 9.3 k/uL (1.3-7.7); Neutrophils % (A) 80 %; Platelet Count 228 k/uL (150-450); RBC 3.74 m/uL (3.80-5.40); RDW 13.3 % (11.5-15.5); WBC 11.6 k/uL (3.8-10.6)
[2018-09-29 07:53] LABS: ALT 96 U/L (9-52); AST 48 U/L (14-36); African American GFR (CKD) >90 (>60 ml/min/1.73 sqM); Albumin 2.7 g/dL (3.5-5.0); Alkaline Phosphatase 174 U/L (38-126); Anion Gap 7 mmol/L; Blood Urea Nitrogen 8 mg/dL (7-17); Carbon Dioxide 25 mmol/L (22-30); Chloride 104 mmol/L (98-107); Glucose 105 mg/dL (74-99); Potassium 3.2 mmol/L (3.5-5.1); Sodium 136 mmol/L (137-145); Total Bilirubin 1.1 mg/dL (0.2-1.3); Total Protein 5.3 g/dL (6.3-8.2)
[2018-09-29] MEDS: METOPROLOL TARTRATE 12.5 MG TAB PO SCH (08:59)
[2018-09-29] MEDS: HEPARIN SODIUM,PORCINE 5,000 UNIT/ML 1 ML VIAL SQ SCH (08:59)
[2018-09-29] MEDS: PANTOPRAZOLE 40 MG/10 ML VIAL IVP SCH (08:59)
[2018-09-29] MEDS: SODIUM CHLORIDE 0.9% 1,000 ML IV SCH ×2 (09:00→12:15)
[2018-09-29] MEDS: ASPIRIN 81 MG PO SCH (09:00)
[2018-09-29 10:39] VITALS: RESP 18
--- NOTE | 2018-09-29 11:25 | P.PN ---
Subjective Progress Note Date: 09/29/18 This is a pleasant 78-year-old female with no prior documented history of hypertension, no diabetes, no hyperlipidemia, she is a nonsmoker, does not drink alcohol. She was a transfer from [facility]. Patient apparently was scheduled to undergo cholecystectomy for acute cholecystitis, she was found to have a significantly elevated white blood cell count and arranged for transfer here to the higher level of care. A troponin was also drawn at the prior institution which came back to be mildly abnormal. Patient denies having any chest discomfort at present or in the past couple of weeks. Her breathing overall is stable. White blood cell count at [facility] 24.8, hemoglobin 12.4, platelet count 193, sodium 137, potassium 3.1, BUN 9 and creatinine 0.8. ALT 354 alk phos 392 total bili 4.6 albumin 3.4 lactic acid 1.2 troponin 0.2 blood pressure at [facility] 108/58 with a heart rate of 117, respirations 20, afebrile CAT scan of the abdomen and pelvis revealed acute cholecystitis with cholelithiasis, chest x-ray did not reveal any acute abnormality. They did not send an EKG from [facility] EKG performed on arrival here shows a normal sinus rhythm with no acute changes. Blood pressure 92/50 with a heart rate of 90, 94% on room air. White blood cell count on arrival 17.2, 14.7 this morning. Hemoglobin 10.8, platelet count 185. Sodium 137, potassium 3.5, BUN 15 and cr eatinine 0.6. Troponins here at [facility] 0.14, 0.10. Cholesterol 159, LDL 114 and HDL 30. At the time of my examination this morning, the patient is quite comfortable, she denies any chest discomfort, has some mild abdominal discomfort, and her breathing is stable. Patient was seen and examined today, scheduled for laparoscopic cholecystectomy today. Blood pressure 127/70 with a heart rate of 90, 95% on room air.White blood cell count 10.3, hemoglobin 10.8, platelet count 194. Sodium 139, p otassium 3.5, BUN 14 and creatinine 0.6. 09/29/2018 Patient seen and examined this morning, hemodynamically stable, blood pressure 140/70 with a heart rate in the 80s, 94% on room air. White blood cell count 11.6, hemoglobin 11.5, platelet count 228. Sodium 136, potassium 3.2, BUN 8 and creatinine 0.6. LFTs improving. Objective - Vital Signs Vital signs: Vital Signs Temp 98.4 F 09/29/18 08:00 Pulse 90 09/29/18 08:00 Resp 18 09/29/18 08:00 BP 141/71 09/29/18 08:00 Pulse Ox 94 L 09/29/18 08:00 Intake & Output 09/28/18 09/29/18 09/29/18 18:59 06:59 18:59 Intake Total 400 100 120 Output Total 563 25 Balance -163 75 120 Weight 74.5 kg Intake: Oral 400 100 120 Output: Drainage 63 25 Abdomen 63 25 Urine 500 Other: Voiding Method Toilet Toilet # Voids 1 2 - Exam PHYSICAL EXAMINATION: GENERAL: 78-year-old female in no acute distress at the time of my examination HEENT: Head is atraumatic, normocephalic. Pupils equal, round. Sclera anicteric. Conjunctiva are clear. Mucous membranes of the mouth are moist. Neck is supple. There is no elevated jugular venous pressure. No carotid bruit is heard. HEART EXAMINATION: Heart S1 and S2 with soft systolic murmur is heard CHEST EXAMINATION: Lungs reveal some scattered coarse rhonchi that clear with cough. ABDOMEN: Soft, mild right upper quadrant tenderness on palpation . Bowel sounds are heard. No organomegaly noted. EXTREMITIES: 2+ peripheral pulses with no evidence of peripheral edema and no calf tenderness noted. NEUROLOGIC patient is awake, alert and oriented 3 . - Labs CBC & Chem 7: 09/29/18 07:14 09/29/18 07:14 Labs: Abnormal Lab Results - Last 24 Hours (Table) 09/29/18 09/29/18 Range/Units 07:14 07:14 WBC 11.6 H (3.8-10.6) k/uL RBC 3.74 L (3.80-5.40) m/uL Neutrophils # 9.3 H (1.3-7.7) k/uL Lymphocytes # 0.7 L (1.0-4.8) k/uL Sodium 136 L (137-145) mmol/L Potassium 3.2 L (3.5-5.1) mmol/L Glucose 105 H (74-99) mg/dL Calcium 8.0 L (8.4-10.2) mg/dL AST 48 H (14-36) U/L ALT 96 H (9-52) U/L Alkaline Phosphatase 174 H (38-126) U/L Total Protein 5.3 L (6.3-8.2) g/dL Albumin 2.7 L (3.5-5.0) g/dL Microbiology - Last 24 Hours (Table) 09/25/18 21:45 Blood Culture - Preliminary Blood No Growth after 72 hours Assessment and Plan Plan: Assessment and plan #1 acute cholecystitis with elevated white blood cell count, status post laparoscopic cholecystectomy #2 abnormal troponin, not consistent with acute coronary syndrome, likely secondary to the acute cholecystitis #3 cardiac risk factors negative for hypertension, no diabetes, no hyperlipidemia, patient is a nonsmoker Plan From cardiology's perspective, we'll recommend to continue this patient on her current medications. We will follow her along now on an as-needed basis only, please don't hesitate to call with any questions. DNP note has been reviewed, I agree with a documented findings and plan of care. Patient was seen and examined.
[2018-09-29 11:58] VITALS: BP 104/63; TEMP 97.3
--- NOTE | 2018-09-29 12:10 | P.PN ---
Subjective Progress Note Date: 09/29/18 CHIEF COMPLAINT: Cholelithiasis HISTORY OF PRESENT ILLNESS: Patient seen and examined at the bedside. She is status post laparoscopic cholecystectomy. Postop day #2. Patient states her pain is tolerable at this time. She denies nausea or vomiting. She is erendira erating clear liquid diet. WBC 11.6 today. Potassium 3.2. Bilirubin 1.1. AST 48. ALT 96. SHANIQUE drain with serosanguineous output. PHYSICAL EXAM: VITAL SIGNS: Reviewed. GENERAL: Well-developed in no acute distress. Very mild jaundice. HEENT: Minimal sclera icterus. Extraocular movements grossly intact. Moist buccal mucosa. Head is atraumatic, normocephalic. ABDOMEN: Soft. Nondistended. Appropriate surgical tenderness. Positive bowel sounds. SHANIQUE drain with serosanguineous drainage. Incision sites clean dry and intact without drainage or signs of infection. NEUROLOGIC: Alert and oriented. Cranial nerves II through XII grossly intact. ASSESSMENT: 1. Acute cholecystitis 2. Cholelithiasis with transaminitis and hyperbilirubinemia, possible choledocholithiasis 3. Leukocytosis PLAN: 1. Advance diet 2. Continue Zosyn 3. Pain control. 4. Incentive spirometry 5. Activity as tolerated 6. Replace potassium 7. Patient is stable for discharge home today from a surgical standpoint. She is to be discharged home with SHANIQUE drain which will be removed at her follow-up visit with Dr. Munoz. Nurse practitioner note has been reviewed by physician. Signing provider agrees with the documented findings, assessment, and plan of care. Objective - Vital Signs Vital signs: Vital Signs Temp 97.3 F L 09/29/18 11:30 Pulse 90 09/29/18 11:30 Resp 18 09/29/18 11:30 BP 104/63 09/29/18 11:30 Pulse Ox 96 09/29/18 11:30 Intake & Output 09/28/18 09/29/18 09/29/18 18:59 06:59 18:59 Intake Total 400 100 120 Output Total 563 25 Balance -163 75 120 Weight 74.5 kg Intake: Oral 400 100 120 Output: Drainage 63 25 Abdomen 63 25 Urine 500 Other: Voiding Method Toilet Toilet # Voids 1 2 - Labs CBC & Chem 7: 09/29/18 07:14 09/29/18 07:14 Labs: Abnormal Lab Results - Last 24 Hours (Table) 09/29/18 09/29/18 Range/Units 07:14 07:14 WBC 11.6 H (3.8-10.6) k/uL RBC 3.74 L (3.80-5.40) m/uL Neutrophils # 9.3 H (1.3-7.7) k/uL Lymphocytes # 0.7 L (1.0-4.8) k/uL Sodium 136 L (137-145) mmol/L Potassium 3.2 L (3.5-5.1) mmol/L Glucose 105 H (74-99) mg/dL Calcium 8.0 L (8.4-10.2) mg/dL AST 48 H (14-36) U/L ALT 96 H (9-52) U/L Alkaline Phosphatase 174 H (38-126) U/L Total Protein 5.3 L (6.3-8.2) g/dL Albumin 2.7 L (3.5-5.0) g/dL Microbiology - Last 24 Hours (Table) 09/25/18 21:45 Blood Culture - Preliminary Blood No Growth after 72 hours
[2018-09-29] MEDS: POTASSIUM CHLORIDE ER 20 MEQ TAB.ER PO SCH (12:17)
[2018-09-29] MEDS ORDERED: PANTOPRAZOLE 40 MG TABLET PO SCH (21:00)
--- NOTE | 2018-09-30 03:32 | P.DS ---
Providers Date of admission: 09/25/18 21:07 Expected date of discharge: 09/29/18 Attending physician: Mg Magdaleno MD Consults: 09/25/18 21:07 Consult Physician Routine Consulting Provider: Mukesh Munoz Consult Reason/Comments: Cholecystitis and cholelithiasis, non-STEMI Do you want consulting provider notified?: Yes Consult Physician Urgent Consulting Provider: Donis Richardson Consult Reason/Comments: Non-STEMI with normal-appearing EKG, cholecystitis Do you want consulting provider notified?: Yes Primary care physician: [facility] Course: Final Diagnosis Cholecystitis and cholelithiasis, status post laparoscopic cholecystectomy Troponin 0.108, indeterminate per cardiology, not consistent with acute coronary syndrome likely secondary to acute cholecystitis and sepsis Elevated liver enzymes possibly secondary to choledocholelithiasis, improving, trending down. History of skin cancer Anemia of chronic disease. Discharge disposition This patient is being discharged in stable condition with guarded prognosis to home with home care. Patient lives with her daughter and grandson and they are agreeable with the treatment plan. Patient is to follow up with surgery in one week in the outpatient setting. History of present illness This is an 78 year old female that was admitted for cholecystitis and cholelithiasis and underwent a cholecystectomy two days ago. Patient denies any chest pain, shortness of breath, or palpitations at this time. Patient is having some abdominal tenderness but is passing gas. Patient denies any nausea or vomiting at this time and is tolerating diet. Advancing as tolerated. Patient denies any bowel movements at this time. Patient will go home with a SHANIQUE drain in and follow up with surgery in the clinic in one week for a recheck and SHANIQUE drain removal. Patient encouraged to use the incentive spirometer. Patient is currently stable with much improvement. On exam vitals are stable. Blood pressure is 104/63, pulse is 70, resp are 18, oxygen saturation is 96% on room air and temp is 97.3F. Cardio S1 and S2 are heard. Respiratory shows diminished breath sounds in the bases with no wheezing or crackles noted. Abdomen is soft, mildy tender upon palpation, and obese. Nervous system shows no focal deficits and gait is steady. Please refer to medication reconciliation sheet for a list of medications. Patient Condition at Discharge: Stable Plan - Discharge Summary Discharge Rx Participant: No New Discharge Prescriptions: New Aspirin 81 mg PO DAILY #30 chew Amoxic-Pot Clav 875-125Mg [Augmentin 875-125] 1 tab PO BID 3 Days #6 tab Metoprolol Tartrate [Lopressor] 12.5 mg PO DAILY #30 tab Nitroglycerin Sl Tabs [Nitrostat] 0.4 mg SUBLINGUAL Q5M PRN #20 tab PRN Reason: Chest Pain HYDROcodone/APAP 5-325MG [[place] 5-325] 1 each PO Q4HR PRN #9 tab PRN Reason: Pain Pantoprazole Sodium [Protonix] 40 mg PO DAILY #30 tablet.dr Continue Vitamin B Complex 1 cap PO DAILY Acetaminophen Tab [Tylenol] 1,000 mg PO Q6H PRN PRN Reason: Pain Discontinued Fish Oil/Dha/Epa [Fish Oil 1,200 mg Fish Oil] 1 cap PO DAILY Discharge Medication List Acetaminophen Tab [Tylenol] 1,000 mg PO Q6H PRN 09/25/18 [History] Vitamin B Complex 1 cap PO DAILY 09/25/18 [History] Amoxic-Pot Clav 875-125Mg [Augmentin 875-125] 1 tab PO BID 3 Days #6 tab 09/29/18 [Rx] Aspirin 81 mg PO DAILY #30 chew 09/29/18 [Rx] HYDROcodone/APAP 5-325MG [[place] 5-325] 1 each PO Q4HR PRN #9 tab 09/29/18 [Rx] Metoprolol Tartrate [Lopressor] 12.5 mg PO DAILY #30 tab 09/29/18 [Rx] Nitroglycerin Sl Tabs [Nitrostat] 0.4 mg SUBLINGUAL Q5M PRN #20 tab 09/29/18 [Rx] Pantoprazole Sodium [Protonix] 40 mg PO DAILY #30 tablet. 09/29/18 [Rx] Follow up Appointment(s)/Referral(s): Anastasia Tomlinson MD [Primary Care Provider] - 1-2 days (Office is closed on Fridays. Please call to schedule appointment) Mukesh Munoz MD [STAFF PHYSICIAN] - 10/05/18 1:15 pm () Ambulatory/Diagnostic Orders: Complete Blood Count w/diff [LAB.AMB] Location: None Selected Patient Instructions/Handouts: *Surgery [facility] - Laparoscopic Cholecystectomy Discharge Instructions, Cholecystitis (ED), Natalio-Espinoza Drain Care (DC) Activity/Diet/Wound Care/Special Instructions: pl give an IS to the pt. QID No lifting over 10 pounds You may shower. No soaking or tub baths Very light activity until you are reevaluated at your follow up appointment with your surgeon Discharge Disposition: HOME SELF-CARE
--- NOTE | 2018-09-30 10:05 | DS ---
DISCHARGE SUMMARY DATE OF SERVICE: 09/29/2018. FINAL DIAGNOSES: 1. Acute cholecystitis and cholelithiasis, status post laparoscopic cholecystectomy. 2. Troponin 0.108, indeterminate, non consistent with acute coronary syndrome, likely secondary to acute cholecystitis/sepsis per Cardiology. 3. Elevated LFTs secondary to choledocholithiasis, improving. 4. History of skin cancer. 5. Anemia of chronic disease. DISCHARGE DISPOSITION: The patient will be discharged in stable condition with guarded prognosis. Surgery and Cardiology cleared the patient. HISTORY OF PRESENT ILLNESS: This 78-year-old woman with a past medical history of multiple medical problems including cholecystitis and cholelithiasis. Patient underwent laparoscopic cholecystectomy by Dr. Munoz. Patient improved significantly. Cardiology saw the patient and Surgery cleared the patient for discharge. The patient will be discharged in stable condition with guarded prognosis. On exam, vitals are stable. CARDIOVASCULAR: S1, S2. Abdomen soft, nontender. Status post surgery. Nervous system: No focal deficits. Total time taken 35 minutes. DISCHARGE ADVICE AND MEDICATIONS: 1. Diet is cardiac diet. 2. Activity limited until followup. 3. Follow up with Dr. Tomlinson, primary physician in 1-2 days. 4. Follow up with Dr. Munoz as recommended. DISCHARGE MEDICATIONS: As follows: 1. Tylenol 1000 mg q.6h p.r.n. 2. Vitamin B complex 1 p.o. daily. 3. Aspirin 81 mg p.o. daily. 4. Augmentin 875 mg 1 p.o. b.i.d. for 3 days. 5. Lopressor 12.5 mg p.o. daily. 6. Nitrostat 0.4 mg p.r.n. 7. [place] 5 mg q.4 p.r.n. 8. Protonix 40 mg p.o. daily. Once again the patient is being discharged in stable condition with guarded prognosis. MMODL / IJN: [id number] /
== END 2018-09-29 13:07 | disposition home or self-care (01) | DRG 854 ==
LOC: EC 17:27 → 3SCARD 21:07
PROVIDERS: ADMIT Internal Medicine; ATTEND Internal Medicine
PROC: 0FT44ZZ Resection of Gallbladder, Percutaneous Endoscopic Approach (ICD-10-PCS; principal; 2018-09-27 14:30)
DX: A41.9 Sepsis, unspecified organism (principal); K80.00 Calculus of gallbladder with acute cholecystitis without obstruction; D63.8 Anemia in other chronic diseases classified elsewhere; E66.9 Obesity, unspecified; Z68.31 Body mass index [BMI] 31.0-31.9, adult; E87.6 Hypokalemia; I10 Essential (primary) hypertension; F17.210 Nicotine dependence, cigarettes, uncomplicated; Z85.828 Personal history of other malignant neoplasm of skin; E80.6 Other disorders of bilirubin metabolism; R74.8 Abnormal levels of other serum enzymes
CPT/HCPCS: 36415; 80048; 80053; 80061; 81001; 82550; 83690; 84484; 85025; 85027; 85610; 85730; 87040; 87086; 88304; 93005; 93306; 96365; 96366; 96368; 96376; 99285

== ENCOUNTER 2018-10-05 13:52 | Observation (INO) | payer MEDICARE ==
--- NOTE | 2018-10-05 14:16 | ED ---
Abdominal Pain HPI - General Chief Complaint: Abdominal Pain Stated Complaint: Post gallbladder surgery leaking, sent by Time Seen by Provider: 10/05/18 14:12 Source: patient, family Mode of arrival: ambulatory Limitations: no limitations - History of Present Illness Initial Comments: 78-year-old female with history of recent cholecystectomy performed 09/[address] Mukesh Munoz. Patient states she had a one-week follow-up and it was noted in her J-tube from the surgical site to have large collection of bile he was concerned of bile leak and sent patient to the ER for evaluation. She has had pain at the site of this surgical incisions she denies redness or large amount of drainage denies fevers. She states she has had some occasional nausea. She denies vomiting she denies diarrhea. Patient denies any severe abdominal pain. Patient states that she has had no appetite until today and feels like she is starving. Remaining review systems negative patient denies any leg swelling chest pain or shortness of breath. On arrival to emergency department patient appears normal signs acute distress. Afebrile. Dr. Munoz called ahead speaking with my attending provider Dr. Varghese, who recommended basic labs, admission for GI consultation. He states patient to be NPO after midnight. - Related Data Home Medications Medication Instructions Recorded Confirmed Vitamin B Complex 1 cap PO DAILY 09/25/18 10/05/18 Previous Rx's Medication Instructions Recorded Aspirin 81 mg PO DAILY #30 chew 09/29/18 Metoprolol Tartrate [Lopressor] 12.5 mg PO DAILY #30 tab 09/29/18 Pantoprazole Sodium [Protonix] 40 mg PO DAILY #30 tablet. 09/29/18 Allergies Allergy/AdvReac Type Severity Reaction Status Date / Time No Known Allergies Allergy Verified 10/05/18 15:07 Review of Systems ROS Statement: Those systems with pertinent positive or pertinent negative responses have been documented in the HPI. ROS Other: All systems not noted in ROS Statement are negative. Past Medical History Past Medical History: Cancer Additional Past Medical History / Comment(s): skin ca. History of Any Multi-Drug Resistant Organisms: None Reported Past Surgical History: Tubal Ligation Past Anesthesia/Blood Transfusion Reactions: No Reported Reaction Past Psychological History: No Psychological Hx Reported Smoking Status: Never smoker Past Alcohol Use History: None Reported Past Drug Use History: None Reported General Exam - General Exam Comments Initial Comments: General: The patient is awake and alert, in no distress, and does not appear acutely ill. Eye: Pupils are equal, round and reactive to light, extra-ocular movements are intact. No nystagmus. There is normal conjunctiva bilaterally. No signs of icterus. Cardiovascular: There is a regular rate and rhythm. No murmur, rub or gallop is appreciated. Respiratory: Lungs are clear to auscultation, respirations are non-labored, breath sounds are equal. No wheezes, stridor, rales, or rhonchi. Gastrointestinal: Upon inspection of the abdomen there are 4 incisions total 2 to the right of the umbilicus in the right upper quadrant 1 through the umbilicus and one to the left of the umbilicus. Small amount of drainage no erythema no tenderness near incision sites. J tube in place through one of the incisions of the RUQ. Soft, non-distended, diffuse mild tenderness to palpation of the abdomen, the abdomen is without masses or organomegaly noted. There is no rebound or guarding present. Bowel sounds are unremarkable. Musculoskeletal: . Normal ROM, no tenderness. Strength 5/5. Sensation intact. Radial pulses equal bilaterally 2+. Neurological: A&O x 3. CN II-XII intact grossly, There are no obvious motor or sensory deficits. Coordination appears grossly intact. Speech is normal. Skin: Skin is warm and dry and no rashes or lesions are noted. (-) Homans b/l. There is no pain to palpation of the posterior calfs b/l Psychiatric: Cooperative, appropriate mood & affect, normal judgment. Limitations: no limitations Course Vital Signs 10/05/18 14:06 Temperature 98.2 F Pulse Rate 83 Respiratory 20 Rate Blood Pressure 122/80 O2 Sat by Pulse 95 Oximetry Medical Decision Making - Medical Decision Making 78-year-old female with recent cholecystectomy with J-tube in place presenting for drainage of bile with concern for bile leak set in by surgeon Dr. Munoz for admission and GI consultation. Patient's incision sites appear non-erythe matous and tenderness to patient. Small amount of serosanguineous drainage. No foul order. Patient is afebrile. Denies history of fever. Patient states she has had some postoperative pain denies any severe or excruciating pain. Patient has minimal tenderness on examination to palpation diffusely. Patient J tube balloon reveals a brown thin fluid. Patient has no other complaints, laboratory studies reveal stable hemoglobin. No significant leukocytosis appears to be consistent patient's previous values. Patient does have left shift however this improving since prior to surgery. Patient has elevated his alk phosphatase. Otherwise laboratory studies stable. Patient did not appear peritoneal on physical examination. Comfortable requesting to eat. At this time we'll admit patient for request of Dr. Cannon for further evaluation by gastroenterology for possible bile leakage. - Lab Data Result diagrams: 10/05/18 14:50 10/05/18 14:50 Lab Results 10/05/18 10/05/18 10/05/18 Range/Units 14:50 14:50 14:57 WBC 11.5 H (3.8-10.6) k/uL RBC 3.79 L (3.80-5.40) m/uL Hgb 11.3 L (11.4-16.0) gm/dL Hct 34.5 (34.0-46.0) % MCV 91.2 (80.0-100.0) fL MCH 29.9 (25.0-35.0) pg MCHC 32.8 (31.0-37.0) g/dL RDW 12.7 (11.5-15.5) % Plt Count 417 (150-450) k/uL Neutrophils % 80 % Lymphocytes % 9 % Monocytes % 7 % Eosinophils % 2 % Basophils % 0 % Neutrophils # 9.2 H (1.3-7.7) k/uL Lymphocytes # 1.0 (1.0-4.8) k/uL Monocytes # 0.8 (0-1.0) k/uL Eosinophils # 0.2 (0-0.7) k/uL Basophils # 0.0 (0-0.2) k/uL Sodium 138 (137-145) mmol/L Potassium 3.6 (3.5-5.1) mmol/L Chloride 102 (98-107) mmol/L Carbon Dioxide 27 (22-30) mmol/L Anion Gap 9 mmol/L BUN 8 (7-17) mg/dL Creatinine 0.48 L (0.52-1.04) mg/dL Est GFR (CKD-EPI)AfAm >90 (>60 ml/min/1.73 sqM) Est GFR (CKD-EPI)NonAf >90 (>60 ml/min/1.73 sqM) Glucose 83 (74-99) mg/dL Plasma Lactic Acid Alejandro 0.9 (0.7-2.0) mmol/L Calcium 8.4 (8.4-10.2) mg/dL Total Bilirubin 0.7 (0.2-1.3) mg/dL AST 42 H (14-36) U/L ALT 39 (9-52) U/L Alkaline Phosphatase 231 H (38-126) U/L Total Protein 5.8 L (6.3-8.2) g/dL Albumin 3.0 L (3.5-5.0) g/dL Disposition Clinical Impression: Postprocedural leakage from bile duct, Abdominal pain Disposition: ADMITTED IP TO THIS HOSP Condition: Stable Is patient prescribed a controlled substance at d/c from ED?: No Referrals: Anastasia Tomlinson MD [Primary Care Provider] - 1-2 days Time of Disposition: 15:44
[2018-10-05] MEDS ORDERED: SODIUM CHLORIDE 0.9% 500 ML 500 ML IV ONE (14:33)
[2018-10-05] MEDS ORDERED: ONDANSETRON 4 MG/2 ML VIAL IVP PRN (14:33)
[2018-10-05] MEDS ORDERED: MORPHINE SULFATE 4 MG/ML SYRINGE IV PRN (14:33)
[2018-10-05] MEDS ORDERED: NALOXONE 0.4 MG/ML 1 ML VIAL IV PRN (14:33)
[2018-10-05 15:23] LABS: Basophils % (A) 0 %; Eosinophils # (A) 0.2 k/uL (0-0.7); Eosinophils % (A) 2 %; HCT 34.5 % (34.0-46.0); HGB 11.3 gm/dL (11.4-16.0); Lymphocytes % (A) 9 %; MCH 29.9 pg (25.0-35.0); MCHC 32.8 g/dL (31.0-37.0); MCV 91.2 fL (80.0-100.0); Mean Platelet Volume 7.8; Monocytes # (A) 0.8 k/uL (0-1.0); Monocytes % (A) 7 %; Neutrophils # (A) 9.2 k/uL (1.3-7.7); Neutrophils % (A) 80 %; Platelet Count 417 k/uL (150-450); RBC 3.79 m/uL (3.80-5.40); RDW 12.7 % (11.5-15.5); WBC 11.5 k/uL (3.8-10.6)
[2018-10-05 15:32] LABS: ALT 39 U/L (9-52); AST 42 U/L (14-36); African American GFR (CKD) >90 (>60 ml/min/1.73 sqM); Alkaline Phosphatase 231 U/L (38-126); Anion Gap 9 mmol/L; Blood Urea Nitrogen 8 mg/dL (7-17); Calcium 8.4 mg/dL (8.4-10.2); Carbon Dioxide 27 mmol/L (22-30); Chloride 102 mmol/L (98-107); Glucose 83 mg/dL (74-99); Potassium 3.6 mmol/L (3.5-5.1); Sodium 138 mmol/L (137-145); Total Bilirubin 0.7 mg/dL (0.2-1.3); Total Protein 5.8 g/dL (6.3-8.2)
[2018-10-05] MEDS: SODIUM CHLORIDE 0.9% 1,000 ML IV SCH ×2 (16:17→23:28)
[2018-10-05 20:04] VITALS: BMI 29.6
[2018-10-05] MEDS ORDERED: MELATONIN 5 MG TABLET PO PRN (21:22)
[2018-10-05] MEDS: HEPARIN SODIUM,PORCINE 5,000 UNIT/ML 1 ML VIAL SQ SCH (23:27)
[2018-10-06 07:49] LABS: Basophils % (A) 0 %; Eosinophils # (A) 0.2 k/uL (0-0.7); Eosinophils % (A) 2 %; HCT 33.3 % (34.0-46.0); HGB 10.8 gm/dL (11.4-16.0); Hypochromasia Slight; Lymphocytes # (A) 0.9 k/uL (1.0-4.8); Lymphocytes % (A) 10 %; MCHC 32.4 g/dL (31.0-37.0); MCV 92.6 fL (80.0-100.0); Mean Platelet Volume 7.9; Monocytes # (A) 0.5 k/uL (0-1.0); Monocytes % (A) 6 %; Neutrophils # (A) 7.1 k/uL (1.3-7.7); Neutrophils % (A) 79 %; Platelet Count 412 k/uL (150-450); RBC 3.59 m/uL (3.80-5.40); RDW 12.9 % (11.5-15.5); WBC 9.1 k/uL (3.8-10.6)
[2018-10-06 07:55] LABS: INR 0.9 (<1.2); Prothrombin Time 9.9 sec (9.0-12.0)
--- NOTE | 2018-10-06 08:01 | P.CONS ---
History of Present Illness - Reason for Consult Consult date: 10/06/18 Bile leak Requesting physician: Mukesh Munoz - Chief Complaint bile leak - History of Present Illness 78-year-old female with a past medical history calculous cholecystectomy 09/25/2018 admitted with concern for bile leak. Patient noticed within the day of discharge, [employer] green-colored fluid draining from her SHANIQUE drain. Minimal abdominal discomfort. No fevers. White count 11.5. Hemoglobin 11.3. Platelet 417. BUN 8. Creatinine 0.4. Total bilirubin 0.7. AST 42. ALT 39. AP 31. INR 0.9. 10 mL of [employer] bilious fluid emptied since admission. Review of Systems Constitutional: Denies fever, chills, sweats, weight gain, or loss. HEENT: Negative for migraines, blurred vision or loss, earaches, drainage, tinnitus, oral mucosal lesions, dysphagia, or odynophagia. CARDIAC: Negative for chest pain, arrhythmias, or palpitation. RESPIRATORY: Negative for shortness of breath, hemoptysis, cough, or sputum production. GI: See HPI for pertinent findings. : Negative for hematuria, urgency, frequency, polyuria, or dysuria. GYNc: Negative vaginal discharge. MUSCULOSKELETAL: Negative for muscle aches, swelling, arthritis, and arthralgias. NEUROLOGIC: Negative for stroke or TIA. ENDOCRINE: Negative for thyroid problems. SKIN: Negative for rash or itching. PSYCHIATRIC: Negative history for depression and anxiety Past Medical History Past Medical History: Cancer Additional Past Medical History / Comment(s): skin ca, cholecystitis History of Any Multi-Drug Resistant Organisms: None Reported Past Surgical History: Cholecystectomy, Tubal Ligation Past Anesthesia/Blood Transfusion Reactions: No Reported Reaction Past Psychological History: No Psychological Hx Reported Smoking Status: Never smoker Past Alcohol Use History: None Reported Past Drug Use History: None Reported Medications and Allergies Home Medications Medication Instructions Recorded Confirmed Type Vitamin B Complex 1 cap PO DAILY 09/25/18 10/05/18 History Aspirin 81 mg PO DAILY #30 chew 09/29/18 10/05/18 Rx Metoprolol Tartrate [Lopressor] 12.5 mg PO DAILY #30 tab 09/29/18 10/05/18 Rx Pantoprazole Sodium [Protonix] 40 mg PO DAILY #30 tablet. 09/29/18 10/05/18 Rx Allergies Allergy/AdvReac Type Severity Reaction Status Date / Time No Known Allergies Allergy Verified 10/05/18 15:07 Physical Exam Vitals: Vital Signs Temp Pulse Pulse Pulse Resp BP BP 10/06/18 05:00 98 F 80 16 132/75 10/05/18 23:25 72 16 10/05/18 21:26 97.9 F 78 16 128/76 10/05/18 16:15 73 16 118/67 10/05/18 14:06 98.2 F 83 20 122/80 Pulse Ox 10/06/18 05:00 97 10/05/18 23:25 10/05/18 21:26 97 10/05/18 16:15 95 10/05/18 14:06 95 Intake and Output 10/05/18 10/06/18 10/06/18 22:59 06:59 14:59 Intake Total 450 600 Output Total 10 Balance 450 590 Intake: Intake, IV Titration 450 600 Amount Sodium Chloride 0.9% 1, 450 600 000 ml @ 75 mls/hr IV . [id number] [facility] Rx#:[id number] Output: Drainage 10 Abdomen 10 Other: Voiding Method Toilet # Voids 1 4 General appearance: The patient is alert, oriented, in no acute distress. HET: Head is normocephalic and atraumatic. Pupils are equal and reactive. Oropharynx is clear without lesions. Neck: Supple without lymphadenopathy. Trachea midline. Heart: S1 S2. Regular rate and rhythm. Lungs: No crackles or wheezes are heard. Abdomen: Soft, SHANIQUE with bilious fluid. nontender, nondistended with bowel sounds. No peritoneal signs. No palpable organomegaly or masses. Extremities: Normal skin color and turgor. No cyanosis, rash, ulceration, clubbing, or edema. Radial and pedal pulses are 2/4 bilaterally. Neurological: No focal deficits. Strength and sensation are grossly intact. Results CBC & Chem 7: 10/06/18 07:25 10/05/18 14:50 Labs: Abnormal Lab Results - Last 24 Hours (Table) 10/05/18 10/05/18 10/06/18 Range/Units 14:50 14:50 07:25 WBC 11.5 H (3.8-10.6) k/uL RBC 3.79 L 3.59 L (3.80-5.40) m/uL Hgb 11.3 L 10.8 L (11.4-16.0) gm/dL Hct 33.3 L (34.0-46.0) % Neutrophils # 9.2 H (1.3-7.7) k/uL Lymphocytes # 0.9 L (1.0-4.8) k/uL Creatinine 0.48 L (0.52-1.04) mg/dL AST 42 H (14-36) U/L Alkaline Phosphatase 231 H (38-126) U/L Total Protein 5.8 L (6.3-8.2) g/dL Albumin 3.0 L (3.5-5.0) g/dL Assessment and Plan (1) Bile leak Current Visit: Yes Status: Acute Code(s): K83.9 - DISEASE OF BILIARY TRACT, UNSPECIFIED SNOMED Code(s): 739450211 (2) Status post laparoscopic cholecystectomy Current Visit: Yes Status: Acute Code(s): Z90.49 - ACQUIRED ABSENCE OF OTHER SPECIFIED PARTS OF DIGESTIVE TRACT SNOMED Code(s): 486342281 (3) History of cholelithiasis Current Visit: Yes Status: Acute Code(s): Z87.19 - PERSONAL HISTORY OF OTHER DISEASES OF THE DIGESTIVE SYSTEM SNOMED Code(s): 173132907 Plan: 1. Nothing by mouth. ERCP biliary stent later today. Daily CBC CMP. The gre instructor has discussed the risks, benefits and alternative therapies for the above-mentioned procedure and for both sedation/analgesia as well as necessary blood product administration, if indicated, as they pertain to this patient. The patient has indicated understanding and acceptance of the risks and procedures discussed. Thank you for this kind referral and the opportunity to participate in the care of your patient. This consultation was discussed with Dr. Dominguez. The impression and plan of care have been directed as dictated.
[2018-10-06 08:15] LABS: ALT 38 U/L (9-52); AST 33 U/L (14-36); African American GFR (CKD) >90 (>60 ml/min/1.73 sqM); Albumin 2.9 g/dL (3.5-5.0); Alkaline Phosphatase 205 U/L (38-126); Anion Gap 6 mmol/L; Blood Urea Nitrogen 5 mg/dL (7-17); Calcium 8.2 mg/dL (8.4-10.2); Carbon Dioxide 29 mmol/L (22-30); Chloride 106 mmol/L (98-107); Glucose 85 mg/dL (74-99); Potassium 3.5 mmol/L (3.5-5.1); Sodium 141 mmol/L (137-145); Total Bilirubin 0.8 mg/dL (0.2-1.3); Total Protein 5.6 g/dL (6.3-8.2)
[2018-10-06] MEDS: PANTOPRAZOLE 40 MG/10 ML VIAL IVP SCH (09:02)
[2018-10-06] MEDS: HEPARIN SODIUM,PORCINE 5,000 UNIT/ML 1 ML VIAL SQ SCH ×3 (09:03→23:53)
[2018-10-06] MEDS: SODIUM CHLORIDE 0.9% 1,000 ML IV SCH ×3 (12:09→22:00)
--- NOTE | 2018-10-06 12:27 | P.GSHP ---
History of Present Illness H&P Date: 10/06/18 CHIEF COMPLAINT: bile leak HISTORY OF PRESENT ILLNESS: 78-year-old female who underwent laparoscopic cholecystectomy with Dr. Munoz on 09/27/2018. Patient was discharged home in stable condition. She reports noticing the color of her SHANIQUE drain became darker and more greenish/brown a few days after she was discharged. She followed up with Dr. Munoz yesterday who sent her to the hospital for further evaluation. Patient denies abdominal pain. Denies nausea or vomiting. Denies fever or chills. PAST MEDICAL HISTORY: See list. PAST SURGICAL HISTORY: See list. SOCIAL HISTORY: No illicit drug use. REVIEW OF SYSTEMS: CONSTITUTIONAL: Denies fever or chills. HEENT: Denies blurred vision, vision changes, or eye pain. Denies hemoptysis CARDIOVASCULAR: Denies chest pain or pressure. RESPIRATORY: No shortness of breath. GASTROINTESTINAL: Refer to HPI for pertinent findings HEMATOLOGIC: Denies bleeding disorders. GENITOURINARY: Denies any blood in urine. SKIN: Denies pruitis. Denies rash. PHYSICAL EXAM: VITAL SIGNS: Reviewed. GENERAL: Well-developed in no acute distress. HEENT: No sclera icterus. Extraocular movements grossly intact. Moist buccal mucosa. Head is atraumatic, normocephalic. ABDOMEN: Soft. Nondistended. Nontender. Surgical incision sites clean dry and intact without drainage. SHANIQUE drain with bile output. NEUROLOGIC: Alert and oriented. Cranial nerves II through XII grossly intact. LABORATORY DATA: WBC on admission 11.5. Repeat this morning 9.1. Hemoglobin 10.8. Sodium 141. Potassium 3.5. Lactic acid 0.9. Total bilirubin 0.8. AST 33. ALT 38. Alkaline phosphatase 205. ASSESSMENT: 1. Bile leak, status post laparoscopic cholecystectomy 2. Elevated alkaline phosphatase PLAN: NPO. GI consulted and plan for ERCP with stent placement today. Continue to monitor labs. Monitor SHANIQUE drain output. Nurse practitioner note has been reviewed by physician. Signing provider agrees with the documented findings, assessment, and plan of care. Past Medical History Past Medical History: Cancer Additional Past Medical History / Comment(s): skin ca, cholecystitis History of Any Multi-Drug Resistant Organisms: None Reported Past Surgical History: Cholecystectomy, Tubal Ligation Past Anesthesia/Blood Transfusion Reactions: No Reported Reaction Past Psychological History: No Psychological Hx Reported Smoking Status: Never smoker Past Alcohol Use History: None Reported Past Drug Use History: None Reported Medications and Allergies Home Medications Medication Instructions Recorded Confirmed Type Vitamin B Complex 1 cap PO DAILY 09/25/18 10/05/18 History Aspirin 81 mg PO DAILY #30 chew 09/29/18 10/05/18 Rx Metoprolol Tartrate [Lopressor] 12.5 mg PO DAILY #30 tab 09/29/18 10/05/18 Rx Pantoprazole Sodium [Protonix] 40 mg PO DAILY #30 tablet. 09/29/18 10/05/18 Rx Allergies Allergy/AdvReac Type Severity Reaction Status Date / Time No Known Allergies Allergy Verified 10/05/18 15:07 Surgical - Exam Vital Signs Temp Pulse Resp BP Pulse Ox 98.2 F 83 20 122/80 95 10/05/18 14:06 10/05/18 14:06 10/05/18 14:06 10/05/18 14:06 10/05/18 14:06 Results - Labs 10/06/18 07:25 10/06/18 07:25 Abnormal Lab Results - Last 24 Hours (Table) 10/05/18 10/05/18 10/06/18 Range/Units 14:50 14:50 07:25 WBC 11.5 H (3.8-10.6) k/uL RBC 3.79 L 3.59 L (3.80-5.40) m/uL Hgb 11.3 L 10.8 L (11.4-16.0) gm/dL Hct 33.3 L (34.0-46.0) % Neutrophils # 9.2 H (1.3-7.7) k/uL Lymphocytes # 0.9 L (1.0-4.8) k/uL BUN (7-17) mg/dL Creatinine 0.48 L (0.52-1.04) mg/dL Calcium (8.4-10.2) mg/dL AST 42 H (14-36) U/L Alkaline Phosphatase 231 H (38-126) U/L Total Protein 5.8 L (6.3-8.2) g/dL Albumin 3.0 L (3.5-5.0) g/dL 10/06/18 Range/Units 07:25 WBC (3.8-10.6) k/uL RBC (3.80-5.40) m/uL Hgb (11.4-16.0) gm/dL Hct (34.0-46.0) % Neutrophils # (1.3-7.7) k/uL Lymphocytes # (1.0-4.8) k/uL BUN 5 L (7-17) mg/dL Creatinine (0.52-1.04) mg/dL Calcium 8.2 L (8.4-10.2) mg/dL AST (14-36) U/L Alkaline Phosphatase 205 H (38-126) U/L Total Protein 5.6 L (6.3-8.2) g/dL Albumin 2.9 L (3.5-5.0) g/dL Diabetes panel 10/05/18 10/06/18 Range/Units 14:50 07:25 Sodium 138 141 (137-145) mmol/L Potassium 3.6 3.5 (3.5-5.1) mmol/L Chloride 102 106 (98-107) mmol/L Carbon Dioxide 27 29 (22-30) mmol/L BUN 8 5 L (7-17) mg/dL Creatinine 0.48 L 0.53 (0.52-1.04) mg/dL Glucose 83 85 (74-99) mg/dL Calcium 8.4 8.2 L (8.4-10.2) mg/dL AST 42 H 33 (14-36) U/L ALT 39 38 (9-52) U/L Alkaline Phosphatase 231 H 205 H (38-126) U/L Total Protein 5.8 L 5.6 L (6.3-8.2) g/dL Albumin 3.0 L 2.9 L (3.5-5.0) g/dL Calcium panel 10/05/18 10/06/18 Range/Units 14:50 07:25 Calcium 8.4 8.2 L (8.4-10.2) mg/dL Albumin 3.0 L 2.9 L (3.5-5.0) g/dL Pituitary panel 10/05/18 10/06/18 Range/Units 14:50 07:25 Sodium 138 141 (137-145) mmol/L Potassium 3.6 3.5 (3.5-5.1) mmol/L Chloride 102 106 (98-107) mmol/L Carbon Dioxide 27 29 (22-30) mmol/L BUN 8 5 L (7-17) mg/dL Creatinine 0.48 L 0.53 (0.52-1.04) mg/dL Glucose 83 85 (74-99) mg/dL Calcium 8.4 8.2 L (8.4-10.2) mg/dL Adrenal panel 10/05/18 10/06/18 Range/Units 14:50 07:25 Sodium 138 141 (137-145) mmol/L Potassium 3.6 3.5 (3.5-5.1) mmol/L Chloride 102 106 (98-107) mmol/L Carbon Dioxide 27 29 (22-30) mmol/L BUN 8 5 L (7-17) mg/dL Creatinine 0.48 L 0.53 (0.52-1.04) mg/dL Glucose 83 85 (74-99) mg/dL Calcium 8.4 8.2 L (8.4-10.2) mg/dL Total Bilirubin 0.7 0.8 (0.2-1.3) mg/dL AST 42 H 33 (14-36) U/L ALT 39 38 (9-52) U/L Alkaline Phosphatase 231 H 205 H (38-126) U/L Total Protein 5.8 L 5.6 L (6.3-8.2) g/dL Albumin 3.0 L 2.9 L (3.5-5.0) g/dL
[2018-10-06] MEDS ORDERED: LEVOFLOXACIN 500MG-D5W PMX 500 MG in DEXTROSE/WATER 1 100ML.BAG IVPB ONE (12:30)
[2018-10-06] MEDS ORDERED: INDOMETHACIN 50MG SUPPOSITORY RECTAL ONE (12:30)
[2018-10-06] MEDS ORDERED: LIDOCAINE 1% INJ 10MG/ML (20 ML MDV) ONE (15:05)
[2018-10-06] MEDS ORDERED: PROPOFOL 10 MG/ML 20 ML VIAL IV ONE (15:05)
[2018-10-06] MEDS ORDERED: GLUCAGON 1 MG/ML VIAL ONE (15:05)
[2018-10-06] MEDS ORDERED: IV FLUID CONTINUATION 1,000 ML IV ONE (15:07)
[2018-10-06] MEDS ORDERED: IOPAMIDOL-300 50ML BTL MISCELLANE ONE (15:30)
--- NOTE | 2018-10-06 16:17 | P.PCN ---
Date of Procedure: 10/06/18 Procedure(s) Performed: Brief history: Patient is a 78 year-old pleasant lady scheduled for an ERCP as part of evaluation of postoperative bile leak. She underwent cholecystectomy 10 days ago. She has a SHANIQUE drain in place which has been leaking bile for the last 10 days and hence scheduled for an ERCP for possible stent placement. Procedure performed: ERCP Preoperative diagnoses: Post cholecystectomy bile leak IV sedation per anesthesia: Procedure: After informed consent was obtained from the patient and after the risks benefits and complications including bleeding perforation and pancreatitis explained in detail the patient was brought into the endoscopy unit. The patient was placed in prone position and IV conscious sedation was administered by anesthesia under continuous monitoring. The Olympus side-viewing duodenoscope was then inserted into the mouth and esophagus intubated without any difficulty. The scope was gradually advanced into the stomach and duodenum. The major papilla was identified without any difficulty. There was a large periampullary diverticulum identified. Initial cannulation resulted in opacification of the pancreatic duct that appeared normal. Subsequently despite multiple attempts I was not able to cannulate the common bile duct. At one point the common bile duct was injected with dye and part of the CBD was visualized and appeared normal. However deep cannulation of the common bile duct could not be checked using different guidewires and catheters and hence the procedure was terminated. Patient tolerated the procedure well Impression: Normal pancreatic duct Part of the distal common bile duct visualized and appeared normal, however deep cannulation was not successful and hence CBD stent could not be placed. Recommendations: The findings of this examination were discussed with the patient . She'll be started on clear liquid diet. We'll discuss with .
--- NOTE | 2018-10-06 16:33 | FL ---
EXAMINATION TYPE: FL ERCP biliary duct only DATE OF EXAM: 10/06/2018 CLINICAL HISTORY: Choledocholithiasis, cholecystitis TECHNIQUE: Fluoroscopy. COMPARISON: CT 09/25/2018. FINDINGS: Fluoroscopic guidance was provided during procedure performed by Dr. Greenwood. A total of 3 minutes 31 seconds of fluoroscopic time was utilized during the procedure and 1 spot images was acqui red. IMPRESSION: See dictated report gastroenterology.
--- NOTE | 2018-10-06 17:30 | P.CONS ---
History of Present Illness - History of Present Illness 78-year-old female was brought in with concerns of related leak patient will undergo biliary stenting tomorrow. Patient had laparoscopy cholecystectomy earlier this month and was sent home with a SHANIQUE drain which appears to be having a discolored greenish brown discharge. Patient denied any fever chills Review of Systems REVIEW OF SYSTEMS: CONSTITUTIONAL: No fever, no malaise, no fatigue. HEENT: No recent visual problems or hearing problems. Denied any sore throat. CARDIOVASCULAR: No chest pain, orthopnea, PND, no palpitations, no syncope. PULMONARY: No shortness of breath, no cough, no hemoptysis. GASTROINTESTINAL: No diarrhea, no nausea, no vomiting, no abdominal pain. NEUROLOGICAL: No headaches, no weakness, no numbness. HEMATOLOGICAL: Denies any bleeding or petechiae. GENITOURINARY: Denies any burning micturition, frequency, or urgency. MUSCULOSKELETAL/RHEUMATOLOGICAL: Denies any joint pain, swelling, or any muscle pain. ENDOCRINE: Denies any polyuria or polydipsia. The rest of the 14-point review of systems is negative. Past Medical History Past Medical History: Cancer Additional Past Medical History / Comment(s): skin ca, cholecystitis History of Any Multi-Drug Resistant Organisms: None Reported Past Surgical History: Cholecystectomy, Tubal Ligation Past Anesthesia/Blood Transfusion Reactions: No Reported Reaction Past Psychological History: No Psychological Hx Reported Smoking Status: Never smoker Past Alcohol Use History: None Reported Past Drug Use History: None Reported Medications and Allergies Home Medications Medication Instructions Recorded Confirmed Type Vitamin B Complex 1 cap PO DAILY 09/25/18 10/05/18 History Aspirin 81 mg PO DAILY #30 chew 09/29/18 10/05/18 Rx Metoprolol Tartrate [Lopressor] 12.5 mg PO DAILY #30 tab 09/29/18 10/05/18 Rx Pantoprazole Sodium [Protonix] 40 mg PO DAILY #30 tablet. 09/29/18 10/05/18 Rx Allergies Allergy/AdvReac Type Severity Reaction Status Date / Time No Known Allergies Allergy Verified 10/05/18 15:07 Physical Exam Vitals: Vital Signs Temp Pulse Pulse Resp BP Pulse Ox 10/06/18 17:15 68 141/64 92 L 10/06/18 16:45 75 125/58 93 L 10/06/18 16:30 75 16 136/63 94 L 10/06/18 11:55 97.9 F 76 17 135/84 96 10/06/18 07:55 98 F 80 16 132/75 97 10/06/18 05:00 98 F 80 16 132/75 97 10/05/18 23:25 72 16 10/05/18 21:26 97.9 F 78 16 128/76 97 Intake and Output 10/06/18 10/06/18 10/06/18 06:59 14:59 22:59 Intake Total 600 625 400 Output Total 10 18 Balance 590 625 382 Intake: IV 400 Intake, IV Titration 600 625 Amount Levofloxacin 500Mg-D5w 100 Pmx 500 mg In Dextrose/ Water 1 100ml.bag @ 100 mls/hr IVPB ONCE ONE Rx#: [id number] Sodium Chloride 0.9% 1, 600 525 000 ml @ 75 mls/hr IV . [id number] [facility] Rx#:[id number] Output: Drainage 10 18 Abdomen 10 18 Other: Voiding Method Toilet # Voids 4 Weight 71.214 kg PHYSICAL EXAMINATION: GENERAL: The patient is alert and oriented x3, not in any acute distress. Well developed, well nourished. HEENT: Pupils are round and equally reacting to light. EOMI. No scleral icterus. No conjunctival pallor. Normocephalic, atraumatic. No pharyngeal erythema. No thyromegaly. CARDIOVASCULAR: S1 and S2 present. No murmurs, rubs, or gallops. PULMONARY: Chest is clear to auscultation, no wheezing or crackles. ABDOMEN: Soft, nontender, nondistended, normoactive bowel sounds. No palpable organomegaly. MUSCULOSKELETAL: No joint swelling or deformity. EXTREMITIES: No cyanosis, clubbing, or pedal edema. NEUROLOGICAL: Gross neurological examination did not reveal any focal deficits. SKIN: No rashes. Results CBC & Chem 7: 10/06/18 07:25 10/06/18 07:25 Labs: Abnormal Lab Results - Last 24 Hours (Table) 10/06/18 10/06/18 Range/Units 07:25 07:25 RBC 3.59 L (3.80-5.40) m/uL Hgb 10.8 L (11.4-16.0) gm/dL Hct 33.3 L (34.0-46.0) % Lymphocytes # 0.9 L (1.0-4.8) k/uL BUN 5 L (7-17) mg/dL Calcium 8.2 L (8.4-10.2) mg/dL Alkaline Phosphatase 205 H (38-126) U/L Total Protein 5.6 L (6.3-8.2) g/dL Albumin 2.9 L (3.5-5.0) g/dL Microbiology - Last 24 Hours (Table) 10/05/18 14:50 Blood Culture - Preliminary Blood No Growth after 24 hours Assessment and Plan Plan: Possible biliary leak: For which patient will undergo ERCP. Patient was started on levofloxacin by pulmonary which will be continued -Recent cholecystitis status post cholecystectomy -Gastroesophageal reflux disease Freeman continued present medications will continue to follow on as-needed basis.
[2018-10-07 04:54] VITALS: TEMP 98.2
[2018-10-07 07:06] LABS: Basophils % (A) 0 %; Eosinophils # (A) 0.2 k/uL (0-0.7); Eosinophils % (A) 3 %; HCT 33.5 % (34.0-46.0); HGB 10.8 gm/dL (11.4-16.0); Hypochromasia Slight; Lymphocytes # (A) 0.7 k/uL (1.0-4.8); Lymphocytes % (A) 9 %; MCH 29.8 pg (25.0-35.0); MCHC 32.1 g/dL (31.0-37.0); MCV 92.8 fL (80.0-100.0); Mean Platelet Volume 7.4; Monocytes # (A) 0.6 k/uL (0-1.0); Monocytes % (A) 8 %; Neutrophils # (A) 5.6 k/uL (1.3-7.7); Neutrophils % (A) 75 %; Platelet Count 359 k/uL (150-450); RBC 3.61 m/uL (3.80-5.40); WBC 7.5 k/uL (3.8-10.6)
[2018-10-07 07:14] LABS: ALT 28 U/L (9-52); AST 29 U/L (14-36); African American GFR (CKD) >90 (>60 ml/min/1.73 sqM); Albumin 2.8 g/dL (3.5-5.0); Alkaline Phosphatase 179 U/L (38-126); Anion Gap 8 mmol/L; Blood Urea Nitrogen 4 mg/dL (7-17); Calcium 8.3 mg/dL (8.4-10.2); Carbon Dioxide 27 mmol/L (22-30); Chloride 107 mmol/L (98-107); Glucose 87 mg/dL (74-99); Potassium 3.3 mmol/L (3.5-5.1); Sodium 142 mmol/L (137-145); Total Bilirubin 0.7 mg/dL (0.2-1.3); Total Protein 5.5 g/dL (6.3-8.2)
[2018-10-07] MEDS: PANTOPRAZOLE 40 MG/10 ML VIAL IVP SCH (08:53)
[2018-10-07] MEDS: HEPARIN SODIUM,PORCINE 5,000 UNIT/ML 1 ML VIAL SQ SCH (08:54)
[2018-10-07] MEDS: SODIUM CHLORIDE 0.9% 1,000 ML IV SCH (10:15)
[2018-10-07 11:57] VITALS: BP 128/68; PULSE 82; RESP 20
--- NOTE | 2018-10-07 14:06 | P.PN ---
Subjective Progress Note Date: 10/07/18 CHIEF COMPLAINT: Bile leak following cholecystectomy HISTORY OF PRESENT ILLNESS: The patient is a 78-year-old female status post cholecystectomy for acute cholecystitis, 09/27/2018. She is POD 10. She feels fine. Attempted ERCP was unsuccessful for stent placement. SHANIQUE output moderately decreased since admission from over 150 mL/24hrs to less than 30 mL/24hrs. She has no abdominal pain. ROS: No reports of nausea and vomiting. No fevers or chills. No new chest pain. No productive sputum PHYSICAL EXAM: VITAL SIGNS: Reviewed CONSTITUTIONAL: Well developed and in no acute distress. EYES: Conjuctivae without sclera icterus. Extraocular movements grossly intact. HEAD, EARS, NOSE, THROAT: Moist buccal mucosa. Head is atraumatic, normocephalic. Hears conversational speech. No nasal drainage. NECK: Supple. No thyroidomegaly. RESPIRATORY: Non-labored respirations and equal bilateral excursions. CARDIOVASCULAR: Palpable 2+ radial pulses. Regular rate. Regular rhythm. ABDOMEN: Incisions clean dry and intact. Soft. No peritonitis. Nontender. SHANIQUE scant bilious MUSCULOSKELETAL: No gross deformity of the lower extremities noted. No clubbing. No cyanosis. SKIN: Good skin turgor. Well perfused. NEUROLOGIC: Cranial nerves I through XII grossly intact. No focal or lateralizing signs. PSYCH: Appropriate affect. Alert and oriented to person, place and time. CLINCAL LABS: White blood cell count normal.. LFTs and total bilirubin within normal limits. MEDICAL REPORT: ERCP reviewed demonstrating diverticulum of the duodenum and inability to pass stent with intact common bile duct ASSESSMENT: 1. Bile leak status post cholecystectomy 2. Duodenal diverticulum PLAN: 1. Regular diet 2. June discharge with SHANIQUE and follow up with Dr. Munoz Objective - Vital Signs Vital signs: Vital Signs Temp 98.2 F 10/07/18 11:30 Pulse 82 10/07/18 11:30 Resp 20 10/07/18 11:30 BP 128/68 10/07/18 11:30 Pulse Ox 93 L 10/07/18 11:30 Intake & Output 10/06/18 10/07/18 10/07/18 18:59 06:59 18:59 Intake Total 1025 850 Output Total 18 50 Balance 1007 800 Weight 71.214 kg Intake: IV 400 Intake, IV Titration 625 650 Amount Levofloxacin 500Mg-D5w 100 Pmx 500 mg In Dextrose/ Water 1 100ml.bag @ 100 mls/hr IVPB ONCE ONE Rx#: [id number] Sodium Chloride 0.9% 1, 525 650 000 ml @ 75 mls/hr IV . [id number] [facility] Rx#:[id number] Oral 200 Output: Drainage 18 50 Abdomen 18 50 Other: Voiding Method Toilet # Voids 1 # Bowel Movements 1 - Labs CBC & Chem 7: 10/07/18 06:45 10/07/18 06:45 Labs: Abnormal Lab Results - Last 24 Hours (Table) 10/07/18 10/07/18 Range/Units 06:45 06:45 RBC 3.61 L (3.80-5.40) m/uL Hgb 10.8 L (11.4-16.0) gm/dL Hct 33.5 L (34.0-46.0) % Lymphocytes # 0.7 L (1.0-4.8) k/uL Potassium 3.3 L (3.5-5.1) mmol/L BUN 4 L (7-17) mg/dL Calcium 8.3 L (8.4-10.2) mg/dL Alkaline Phosphatase 179 H (38-126) U/L Total Protein 5.5 L (6.3-8.2) g/dL Albumin 2.8 L (3.5-5.0) g/dL Microbiology - Last 24 Hours (Table) 10/05/18 14:50 Blood Culture - Preliminary Blood No Growth after 24 hours
--- NOTE | 2018-10-07 14:08 | P.DS ---
Providers Date of admission: 10/05/18 15:40 Expected date of discharge: 10/07/18 Attending physician: Mukesh Munoz Consults: 10/05/18 14:33 Consult Physician Routine Consulting Provider: Dahlia Daly Consult Reason/Comments: medicine consultion Do you want consulting provider notified?: Yes 10/05/18 14:34 Consult Physician Routine Consulting Provider: Eva Greenwood Consult Reason/Comments: surgeon suspects bile leak Do you want consulting provider notified?: Yes Primary care physician: Anastasia Tomlinson - Discharge Diagnosis(es) (1) Bile leak Status: Acute (2) Postprocedural leakage from bile duct Status: Acute (3) Status post laparoscopic cholecystectomy Status: Acute Hospital Course: CHIEF COMPLAINT: Bile leak following cholecystectomy HISTORY OF PRESENT ILLNESS: The patient is a 78-year-old female status post cholecystectomy for acute cholecystitis, 09/27/2018. She is POD 10. She was admitted for bile leak. ERCP attempted and unsuccessful. Since admission, SHANIQUE output is low. She is tolerating diet. Otherwise, stable for discharge with outpatient followup. Plan to continue SHANIQUE CLINCAL LABS: White blood cell count normal MEDICAL REPORT: ERCP reviewed demonstrating diverticulum of the duodenum and inability to pass stent with intact common bile duct ASSESSMENT: 1. Bile leak status post cholecystectomy 2. Duodenal diverticulum PLAN: 1. Regular diet 2. May discharge with SHANIQUE and follow up with Dr. Munoz Procedures: ERCP for bile leak Patient Condition at Discharge: Stable Plan - Discharge Summary Discharge Rx Participant: No New Discharge Prescriptions: No Action Vitamin B Complex 1 cap PO DAILY Aspirin 81 mg PO DAILY #30 chew Metoprolol Tartrate [Lopressor] 12.5 mg PO DAILY #30 tab Pantoprazole Sodium [Protonix] 40 mg PO DAILY #30 tablet.dr Discharge Medication List Vitamin B Complex 1 cap PO DAILY 09/25/18 [History] Aspirin 81 mg PO DAILY #30 chew 09/29/18 [Rx] Metoprolol Tartrate [Lopressor] 12.5 mg PO DAILY #30 tab 09/29/18 [Rx] Pantoprazole Sodium [Protonix] 40 mg PO DAILY #30 tablet. 09/29/18 [Rx] Follow up Appointment(s)/Referral(s): Anastasia Tomlinson MD [Primary Care Provider] - 3 Days Mukesh Munoz MD [Family Provider] - 1 Week Patient Instructions/Handouts: Bhakti Drain Kt (DC)
--- NOTE | 2018-10-07 14:34 | P.PN ---
Subjective Patient was admitted for biliary leak. Patient will remain a stable patient had an ERCP which was attempted and failed. She is being discharged today patient is otherwise clinically doing well. No overnight events. Output from the SHANIQUE drain today is low. Constitutional: Denied any fatigue denied any fever. Cardio vascular: denied any chest pain, palpitations Gastrointestinal denied any nausea vomiting Pulmonary: Denied any shortness of breath cough Neurologic denied any new focal deficits All inpatient medications were reviewed and appropriate changes in these medications as dictated in the interval history and assessment and plan. Objective - Vital Signs Vital signs: Vital Signs Temp 98.2 F 10/07/18 11:30 Pulse 82 10/07/18 11:30 Resp 20 10/07/18 11:30 BP 128/68 10/07/18 11:30 Pulse Ox 93 L 10/07/18 11:30 Intake & Output 10/06/18 10/07/18 10/07/18 18:59 06:59 18:59 Intake Total 1025 850 Output Total 18 50 Balance 1007 800 Weight 71.214 kg Intake: IV 400 Intake, IV Titration 625 650 Amount Levofloxacin 500Mg-D5w 100 Pmx 500 mg In Dextrose/ Water 1 100ml.bag @ 100 mls/hr IVPB ONCE ONE Rx#: [id number] Sodium Chloride 0.9% 1, 525 650 000 ml @ 75 mls/hr IV . [id number] [facility] Rx#:[id number] Oral 200 Output: Drainage 18 50 Abdomen 18 50 Other: Voiding Method Toilet # Voids 1 2 # Bowel Movements 1 - Exam PHYSICAL EXAMINATION: GENERAL: The patient is alert and oriented x3, not in any acute distress. Well developed, well nourished. HEENT: Pupils are round and equally reacting to light. EOMI. No scleral icterus. No conjunctival pallor. Normocephalic, atraumatic. No pharyngeal erythema. No thyromegaly. CARDIOVASCULAR: S1 and S2 present. No murmurs, rubs, or gallops. PULMONARY: Chest is clear to auscultation, no wheezing or crackles. ABDOMEN: Soft, nontender, nondistended, normoactive bowel sounds. No palpable organomegaly. SHANIQUE drain in place MUSCULOSKELETAL: No joint swelling or deformity. EXTREMITIES: No cyanosis, clubbing, or pedal edema. NEUROLOGICAL: Gross neurological examination did not reveal any focal deficits. SKIN: No rashes. - Labs CBC & Chem 7: 10/07/18 06:45 10/07/18 06:45 Labs: Abnormal Lab Results - Last 24 Hours (Table) 10/07/18 10/07/18 Range/Units 06:45 06:45 RBC 3.61 L (3.80-5.40) m/uL Hgb 10.8 L (11.4-16.0) gm/dL Hct 33.5 L (34.0-46.0) % Lymphocytes # 0.7 L (1.0-4.8) k/uL Potassium 3.3 L (3.5-5.1) mmol/L BUN 4 L (7-17) mg/dL Calcium 8.3 L (8.4-10.2) mg/dL Alkaline Phosphatase 179 H (38-126) U/L Total Protein 5.5 L (6.3-8.2) g/dL Albumin 2.8 L (3.5-5.0) g/dL Microbiology - Last 24 Hours (Table) 10/05/18 14:50 Blood Culture - Preliminary Blood No Growth after 24 hours Assessment and Plan Plan: Possible biliary leak: Underwent ERCP but the patient unable to cannulate patient's output from the SHANIQUE drain is low today and patient is being discharged today . -Recent cholecystitis status post cholecystectomy -Gastroesophageal reflux disease Discharge as per general surgery
[2018-10-08] MEDS ORDERED: PANTOPRAZOLE 40 MG TABLET PO SCH (07:30)
== END 2018-10-07 16:32 | disposition home or self-care (01) ==
LOC: EC 13:52 → 3NMEDONC 15:40
PROVIDERS: ADMIT Surgery; ATTEND Surgery
DX: K91.89 Other postprocedural complications and disorders of digestive system (principal); K57.10 Diverticulosis of small intestine without perforation or abscess without bleeding; K21.9 Gastro-esophageal reflux disease without esophagitis; Z79.82 Long term (current) use of aspirin; Z79.899 Other long term (current) drug therapy; Z90.49 Acquired absence of other specified parts of digestive tract; Z98.51 Tubal ligation status; Z87.19 Personal history of other diseases of the digestive system
CPT/HCPCS: 99285; 36415; 80053 ×3; 83605; 85025 ×3; 85610; 87040; 74328; 43260; G0378 ×3; J1610; J1644 ×2; J1956; J2001; J2704; C9113 ×2; Q9967; C1769